=== PATIENT | female | born 1950 | race Caucasian/White ===

== ENCOUNTER 2023-04-25 08:20 | Day surgery (SDC) | payer MEDICARE, OTHER, SELFPAY ==
--- NOTE | 2023-04-25 | IMM_PTH ---
PATHOLOGY RESULTS PATIENT: CHRISTIAN ESTES LOC[place] [facility] [place][id number] AGE/SX: 72/F ROOM: RE04/25/[address]: Dr. Catherine Vaca MD : 1950 BED: DIS: 04/25/2023 SPEC #: [id number] RECD: 04/29/23 12:47 STATUS: AJZLYN KANE #: [id number] KIMMIE: 04/25/23 00:[address]: Catherine Vaca DEPT: IMMUNOHISTOCHEMISTRY RECD BY: Maria Luisa Erickson ENTERED: 04/29/23 12:49 SP TYPE: IMMUNO Tissues: Skin of arm Procedures: MART1 (add) S100 (initial) PHYSICIAN & INSTITUTION [place] [id number] SPECIMEN INFORMATION: Tissue Source: Neoplasm of uncertain behavior right elbow area Clinical Info: Neoplasm of lesion right upper arm Specimen Number: [id number] CPT code: 84235, 01128 METHODOLOGY: Deparaffinized sections of prefer/formalin-fixed tissue or PAP/DQ stained slides are incubated with monoclonal/polyclonal antibodies/oligonucleotide probes. Localization is made via biotin free immunoperoxidase method. Appropriate controls are performed and reacted as expected. Results on target cell population are indicated in the following table: RESULTS: ANTIBODY / CLONE RESULT S-100 (4C4.9) negative MART-1 (A-103) negative These tests were developed and their performance characteristics determined by [facility]. They may not have been cleared or approved by the [place]. Food and Drug Administration. The FDA has determined that such clearance or approval is not necessary. The above immunohistochemical/dualISH markers are ordered and reviewed by the Pathologist. INTERPRETATION: Lesion, right upper are, excision: Negative for melanocyte lesion MIAN:nikita 04/30/2023
--- OUTSIDE RECORDS SUMMARY | 2023-04-25 08:45 | XMS RPT_ITS | CCD ---
Author Name Unknown Address [address] [place] [address] Organization [facility] Care Team Providers Care Waste Management Recycling Technician Name Role Phone No Family, Physician Primary Care Unavailable Leilani PAYAN, Fereshte Primary Care Provider Leilani PAYAN, Jayleneshsejal Primary Care Provider Leilani PAYAN, Fereshsejal Primary Care Provider Leilani PAYAN, Jayleneshte Primary Care Provider [phone] Leilani PAYAN, Fereshte Primary Care Provider Leilani PAYAN, Fereshte Primary Care Provider FELIX CAMACHO Attending Unavailable KHAVARI, FERESHTE Primary Care Unavailable KHAVARI, FERESHTE Referring Unavailable KHAVARI, FERESHTE Primary Care Unavailable KHAVARI, FERESHTE Attending Unavailable KHAVARI, FERESHTE Referring Unavailable KHAVARI, FERESHTE Attending Unavailable KHAVARI, FERESHTE Primary Care Unavailable KHAVARI, FERESHTE Referring Unavailable KHAVARI, FERESHTE Attending Unavailable KHAVARI, FERESHTE Primary Care Unavailable KHAVARI, FERESHTE Referring Unavailable KHAVARI, FERESHTE Attending Unavailable KHAVARI, FERESHTE Primary Care Unavailable KHAVARI, FERESHTE Primary Care Unavailable KHAVARI, FERESHTE Attending Unavailable KHAVARI, FERESHTE Referring Unavailable KHAVARI, FERESHTE Primary Care Unavailable KHAVARI, FERESHTE Attending Unavailable KHAVARI, FERESHTE Referring Unavailable KHAVARI, FERESHTE Primary Care Unavailable KHAVARI, FERESHTE Attending Unavailable KHAVARI, FERESHTE Referring Unavailable KHAVARI, FERESHTE Primary Care Unavailable KHAVARI, FERESHTE Attending Unavailable KHAVARI, FERESHTE Referring Unavailable KHAVARI, FERESHTE Attending Unavailable SELF, SELF Referring Unavailable KHAVARI, FERESHTE Primary Care Unavailable SELF, SELF Referring Unavailable KHAVARI, FERESHTE Attending Unavailable KHAVARI, FERESHTE Primary Care Unavailable KHAVARI, FERESHTE Attending Unavailable KHAVARI, FERESHTE Primary Care Unavailable SELF, SELF Referring Unavailable KHAVARI, FERESHTE Attending Unavailable KHAVARI, FERESHTE Primary Care Unavailable SELF, SELF Referring Unavailable KHAVARI, FERESHTE Attending Unavailable KHAVARI, FERESHTE Primary Care Unavailable SELF, SELF Referring Unavailable ANDRE KNIGHT Attending Unavailabl e KHAVARI, FERESHTE Primary Care Unavailable ANDRE KNIGHT Attending Unavailabl e KHAVARI, FERESHTE Primary Care Unavailable EDWAR BUTTS Attending Unavailable KHAVARI, FERESHTE Primary Care Unavailable FAKIRAN CARTAGENA Attending Unavailable KHAVARI, FERESHTE Primary Care Unavailable Allergies Allergy Classification Reported Allergen(s) Allergy Type Date of Onset Reaction(s) Facility Penicillins (antibiotic) (3 sources) Penicillins Drug Allergy 6 [facility] Sulfonamides (antibiotic) (1 source) Sulfonamides (Antibiotic) Drug Allergy 7 GI Intolerance [facility] (11 sources) Penicillins; Translations: [PENICILLINS] Propensity to adverse reactions to drug 6 Nausea and Vomiting [facility] (7 sources) Sulfonamides (Antibiotic); Translations: [SULFA (SULFONAMIDE ANTIBIOTICS)] Propensity to adverse reactions to drug 7 GI Intolerance, Nausea and Vomiting [facility] (11 sources) Sulfonamides (Antibiotic) Propensity to adverse reactions to drug 7 Nausea and Vomiting [facility] (1 source) Penicillins Propensity to adverse reactions to drug 7 Nausea and Vomiting [facility] (3 sources) Penicillins Propensity to adverse reactions to drug 6 Other (See Comments) [facility] Medications Current Medications Medication Drug Class(es) Dates Sig (Normalized) Sig (Original) amoxicillin 875 mg / clavulanate 125 mg oral tablet (1 source) Penicillin-class Antibacterial Start: 11-27-2020 End: 12-04-2020 take 1 tablet by mouth twice daily amoxicillin-clavu lanate (Augmentin) 875-125 mg per tablet Take 1 (one) tablet by mouth 2 (two) times a day for 7 days . 14 tablet 0 11/27/2020 12/04/2020 Active azithromycin 250 mg oral tablet (1 source) Macrolide Antimicrobial Start: 05-27-2021 End: 06-01-2021 take 1 tablet by mouth once daily azithromycin (Zithromax Z-Joe) 250 MG tablet Indications: Respiratory infection Take 1 (one) tablet (250 mg total) by mouth daily for 5 days . 5 tablet 0 05/27/2021 06/01/2021 Active calcium carbonate 1250 mg / cholecalciferol 200 unt oral tablet (13 sources) Vitamin D calcium-vitamin D 500-200 MG-UNIT Tab take by mouth daily.. 0 Active Calcium Carbonate / Ergocalciferol (7 sources) Provitamin D2 Compound take 1 tablet by mouth twice daily calcium carbonate-vitamin D2 500 mg(1,250mg) -200 unit tablet Take 1 (one) tablet (500 mg total) by mouth 2 (two) times a day . 0 Active Completed/Discontinued Medications Medication Drug Class(es) Dates Sig (Normalized) Sig (Original) benzonatate 200 mg oral capsule (2 sources) Non-narcotic Antitussive Start: 05-17-2022 End: 07-09-2022 take 1 capsule by mouth three times daily as needed for cough benzonatate 200 MG capsule TAKE 1 CAPSULE BY MOUTH THREE TIMES A DAY NEEDED FOR COUGH 0 05/17/2022 07/09/2022 Discontinued fluconazole 150 mg oral tablet (2 sources) Azole Antifungal Start: 01-31-2023 End: 03-27-2023 Fluconazole (Diflucan) 150 MG tablet One pill now and repeat in 48 hours 2 tablet 0 01/31/2023 03/27/2023 Discontinued (Therapy completed) fluorouracil 50 mg/ml topical solution (3 sources) Nucleoside Metabolic Inhibitor Start: 04-10-2022 End: 07-09-2022 Fluorouracil 5 % Solution Apply to actinic keratosis on nose small amount daily. Avoid healthy skin exposure and eye contact. Apply up to 4 weeks or till area blisters 10 mL 0 04/10/2022 07/09/2022 Discontinued lidocaine 1%/ epinephrine 1:100,000 with sodium bicarbonate 8.4% (1 source) Start: 12-20-2021 End: 12-20-2021 lidocaine 1%/ epinephrine 1:100,000 with sodium bicarbonate 8.4% lisinopril 5 mg oral tablet (2 sources) Angiotensin Converting Enzyme Inhibitor Start: 01-13-2023 End: 01-31-2023 take 1 tablet by mouth once daily Lisinopril 5 MG tablet Take 1 tablet by mouth daily. 90 tablet 1 01/13/2023 01/31/2023 Discontinued Problems Active Problems Problem Classification Problem Date Documented Date Episodic/Chronic Allergic reactions (10 sources) Contact dermatitis due to poison umm; Translations: [Allergic contact dermatitis due to plants, except food] Onset: 01-03-2023 Episodic Deficiency and other anemia (1 source) Iron deficiency anemia; Translations: [Iron deficiency anemia, unspecified] 12-19-2022 Episodic Deficiency and other anemia (2 sources) Iron deficiency anemia, unspecified; Translations: [Iron deficiency anemia, unspecified] Onset: 12-19-2022 Episodic Diabetes mellitus without complication (18 sources) Impaired glucose tolerance; Translations: [Impaired glucose tolerance (oral)] Onset: 01-31-2023 11-21-2016 Episodic Disorders of lipid metabolism (18 sources) Hypercholesterolemia; Translations: [Pure hypercholesterolemia, unspecified] Onset: 11-21-2016 11-21-2016 Chronic Essential hypertension (20 sources) Hypertensive disorder; Translations: [Essential (primary) hypertension] Onset: 01-31-2023 11-21-2016 Chronic Genitourinary symptoms and ill-defined conditions (3 sources) Dysuria; Translations: [Dysuria] Onset: 01-31-2023 01-31-2023 Episodic Open wounds of extremities (1 source) Post-traumatic wound infection; Translations: [Open bite, left lower leg, initial encounter] Episodic Other and unspecified benign neoplasm (1 source) Benign neoplasm of skin; Translations: [Other benign neoplasm of skin, unspecified] Episodic Other female genital disorders (1 source) Vaginal irritation; Translations: [Other specified noninflammatory disorders of vagina] 01-31-2023 Episodic Other female genital disorders (2 sources) Other specified noninflammatory disorders of vagina; Translations: [Other specified noninflammatory disorders of vagina] Onset: 01-31-2023 Episodic Other lower respiratory disease (1 source) Respiratory tract infection; Translations: [Other specified respiratory disorders] Episodic Other lower respiratory disease (1 source) Rib pain; Translations: [Pleurodynia] Episodic Other nutritional; endocrine; and metabolic disorders (13 sources) Severe obesity; Translations: [Morbid (severe) obesity due to excess calories] Onset: 03-02-2018 03-02-2018 Chronic Other screening for suspected conditions (not mental disorders or infectious disease) (6 sources) Patient encounter status; Translations: [Encounter for screening mammogram for malignant neoplasm of breast] Onset: 07-31-2022 Episodic Other upper respiratory disease (2 sources) Congestion of nasal sinus; Translations: [Nasal congestion] Episodic Other upper respiratory disease (2 sources) Nasal congestion; Translations: [Nasal congestion] Onset: 01-31-2023 Episodic Skin and subcutaneous tissue infections (1 source) Cellulitis of left lower limb; Translations: [Cellulitis of left lower limb] Episodic Spondylosis; intervertebral disc disorders; other back problems (2 sources) Backache; Translations: [Dorsalgia, unspecified] Episodic Past or Other Problems Problem Classification Problem Date Documented Date Episodic/Chronic E Codes: Natural/environment (2 sources) Bitten by cat, initial encounter; Translations: [Bitten by cat, initial encounter] Onset: 11-30-2022 Episodic Fracture of lower limb (20 sources) Closed fracture of fifth metatarsal bone; Translations: [Nondisplaced fracture of fifth metatarsal bone, left foot, initial encounter for closed fracture] Onset: 10-18-2015 Resolved: 03-13-2018 10-18-2015 Episodic Malaise and fatigue (13 sources) Fatigue; Translations: [Other fatigue] Resolved: 12-19-2020 12-19-2020 Episodic Mycoses (13 sources) Subcutaneous pheohyphomycotic abscess and cyst; Translations: [Subcutaneous pheomycotic abscess and cyst] Onset: 02-10-2020 Resolved: 12-19-2020 12-19-2020 Episodic Other and unspecified benign neoplasm (10 sources) Dysplastic nevus of skin of right lower limb; Translations: [Melanocytic nevi of right upper limb, including shoulder] Onset: 12-20-2021 Episodic Other and unspecified benign neoplasm (2 sources) Dysplastic nevus of skin of right upper limb; Translations: [Other benign neoplasm of skin of right upper limb, including shoulder] Onset: 12-20-2021 Episodic Other and unspecified benign neoplasm (2 sources) Other benign neoplasm of skin of right upper limb, including shoulder; Translations: [Other benign neoplasm of skin of right upper limb, including shoulder] Onset: 07-09-2022 Episodic Other connective tissue disease (2 sources) Other shoulder lesions, left shoulder; Translations: [Other shoulder lesions, left shoulder] Onset: 10-08-2022 Episodic Other skin disorders (2 sources) Actinic keratosis; Translations: [Actinic keratosis] Onset: 04-10-2022 Episodic Other skin disorders (1 source) Actinic keratosis; Translations: [Actinic keratosis] Onset: 04-10-2022 Episodic Other upper respiratory infections (5 sources) Viral upper respiratory tract infection; Translations: [Acute upper respiratory infection, unspecified] Onset: 05-17-2022 Episodic Unclassified (1 source) Onset: 10-09-2021 10-09-2021 Results Test Name Value Interpretation Reference Range Facil ity Vital Signs Date Time Vital Sign Value Performing Clinician Faci lity 03-27-2023 11:55-0400 Body height 165.1 cm Elizabet Duke MD Work Phone: [facility] 03-27-2023 11:55-0400 Body mass index (BMI) [Ratio] 37.51 kg/m2 Elizabet Duke MD Work Phone: [facility] 03-27-2023 11:55-0400 Body temperature 98.4 [degF] Elizabet Duke MD Work Phone: [facility] 03-27-2023 11:55-0400 Body weight 102.24 kg Elizabet Duke MD Work Phone: [facility] 03-27-2023 11:55-0400 Diastolic blood pressure 84 mm[Hg] Elizabet Duke MD Work Phone: [facility] 03-27-2023 11:55-0400 Heart rate 76 /min Elizabet Duke MD Work Phone: [facility] 03-27-2023 11:55-0400 Respiratory rate 18 /min Elizabet Duke MD Work Phone: [facility] 03-27-2023 11:55-0400 SaO2% (BldA) [Mass fraction] 97 % Elizabet Duke MD Work Phone: [facility] 03-27-2023 11:55-0400 Systolic blood pressure 124 mm[Hg] Elizabet Duke MD Work Phone: [facility] 01-31-2023 07:57-0400 Body height 165.1 cm Elizabet Duke MD Work Phone: [facility] 01-31-2023 07:57-0400 Body mass index (BMI) [Ratio] 37.48 kg/m2 Elizabet Duke MD Work Phone: [facility] 01-31-2023 07:57-0400 Body temperature 97.9 [degF] Elizabet Duke MD Work Phone: [facility] 01-31-2023 07:57-0400 Body weight 102.15 kg Elizabet Duke MD Work Phone: [facility] 01-31-2023 07:57-0400 Diastolic blood pressure 78 mm[Hg] Elizabet Duke MD Work Phone: [facility] 01-31-2023 07:57-0400 Heart rate 83 /min Elizabet Duke MD Work Phone: [facility] 01-31-2023 07:57-0400 Respiratory rate 18 /min Elizabet Duke MD Work Phone: [facility] 01-31-2023 07:57-0400 SaO2% (BldA) [Mass fraction] 94 % Elizabet Duke MD Work Phone: [facility] Encounters Encounter Date Encounter Type Care Provider Facility Start: 03-27-2023 End: 03-27-2023 Office outpatient visit 25 minutes Elizabet Duke MD Work Phone: [facility] Procedures Date Procedure Procedure Detail Performing Clinician Start: 01-31-2023 Culture bacterial quanttative colony count urine Elizabet Duke MD Work Phone: Start: 01-31-2023 Hemoglobin glycosyla eduardo a1c Elizabet Duke MD Work Phone: Start: 01-31-2023 Urnls dip stick/tabl et rgnt auto w/o microscopy Elizabet Duke MD Work Phone: Start: 12-18-2022 Lipid 1995 panel - S praveena or Plasma Elizabet Duke MD Work Phone: Start: 07-31-2022 End: 07-31-2022 Screening mammography bi 2-view breast inc cad Elizabet Duke MD Work Phone: Start: 05-18-2022 Iadna nos amplified probe tq each organism Felix A Foskey DO Work Phone: Start: 05-18-2022 Quantitative PCR analysis Felix A Foskey DO Work Phone: Start: 04-20-2022 Lipid 1996 panel - S praveena or Plasma Felix Foskey DO Work Phone: Start: 04-18-2021 Lipid 1996 panel - S praveena or Plasma Elizabet Duke MD Work Phone: Start: 09-04-2020 Lipid 1996 panel - S praveena or Plasma Marie Gerardo DITTO MACHINE OPERATOR-APRON WORKER Work Phone: Start: 03-21-2020 Mammography Jay Marcial meléndez PA-C Work Phone: Plan of Treatment Date Care Activity Detail Author Start: 11-27-2030 Tetanus vaccination [facility] Start: 03-02-2030 Screening for osteoporosis DEXA SCAN DISCUSSION [facility] Immunizations Immunization Date Immunization Notes Care Provider Fa cili 04-10-2021 Influenza, High-dose Seasonal, Quadrivalent, Preservative Free Elizabet Duke MD Work Phone: [facility] 04-10-2021 influenza virus vacc ine, unspecified formulation Catherine Vaca MD Work Phone: [facility] 11-27-2020 diphtheria and tetan us toxoids, adsorbed for pediatric use Jaycandida Styles PA-C Work Phone: [facility] Work Phone: 11-27-2020 tetanus and diphther ia toxoids, adsorbed, preservative free, for adult use (2 Lf of tetanus toxoid and 2 Lf of diphtheria toxoid) Jay Styles PA-C Work Phone: [facility] 08-09-2020 SARS-COV-2 (COVID-19 ), Mrna, Lnp-s, Pf, 100 Mcg/ 0.5 Ml Dose MODERNA Marie Trubachik DITTO MACHINE OPERATOR-APRON WORKER Work Phone: [facility] 07-11-2020 SARS-COV-2 (COVID-19 ), Mrna, Lnp-s, Pf, 100 Mcg/ 0.5 Ml Dose MODERNA Marie Trubachik DITTO MACHINE OPERATOR-APRON WORKER Work Phone: [facility] 06-03-2020 zoster vaccine recombinant Marie Trubachik DITTO MACHINE OPERATOR-APRON WORKER Work Phone: [facility] 02-05-2019 zoster vaccine recombinant Marie Trubachik DITTO MACHINE OPERATOR-APRON WORKER Work Phone: [facility] 09-09-2018 zoster vaccine recombinant Marie Trubachik DITTO MACHINE OPERATOR-APRON WORKER Work Phone: [facility] 03-02-2018 pneumococcal polysaccharide vaccine, 23 valent Marie Trubachik DITTO MACHINE OPERATOR-APRON WORKER Work Phone: [facility] 02-26-2017 pneumococcal conjuga te vaccine, 13 valent Marie Trubachik DITTO MACHINE OPERATOR-APRON WORKER Work Phone: [facility] 04-01-2015 influenza, injectabl e, quadrivalent, preservative free Marie Trubachik DITTO MACHINE OPERATOR-APRON WORKER Work Phone: [facility] 04-01-2015 influenza virus vacc ine, unspecified formulation Marie Trubachik DITTO MACHINE OPERATOR-APRON WORKER Work Phone: [facility] 11-25-2013 tetanus and diphther ia toxoids, adsorbed, preservative free, for adult use (5 Lf of tetanus toxoid and 2 Lf of diphtheria toxoid) Marie Gerardo DITTO MACHINE OPERATOR-APRON WORKER Work Phone: [facility] 12-26-1997 TD(adult) unspecifie d formulation Marie Gerardo DITTO MACHINE OPERATOR-APRON WORKER Work Phone: [facility] Payers Date Payer Category Payer Medicare MEDICARE MEDICAR E A AND B [id number] 2020-Present [address] [place] [address] [id number] 2020 Unknown [id number] 2020 Unknown [id number] [id number] [id number] 2020 Unknown [id number] 2020 Medicare [id number] [id number] 2020 Medicare [id number] 2012 Unknown [id number] [id number] 1950 Unknown [id number] 2.16.840.1.140784.3.579.2.983 1950 Unknown [id number] 2.16.840.1.467513.3.579.2.983 1950 Unknown [id number] 2.16.840.1.218609.3.579.2.983 1950 Unknown [id number] 2.16.840.1.880737.3.579.2.983 1950 Unknown [id number] 2.16.840.1.594509.3.579.2.983 1950 Unknown [id number] 2.16.840.1.723679.3.579.2.983 1950 Unknown [id number] 2.16.840.1.159130.3.579.2.983 1950 Unknown [id number] 2.16.840.1.181378.3.579.2.983 1950 Unknown [id number] 2.16.840.1.454613.3.579.2.983 1950 Unknown [id number] 2.16.840.1.399513.3.579.2.983 1950 Unknown [id number] 2.16.840.1.875436.3.579.2.983 1950 Unknown [id number] 2.16.840.1.948443.3.579.2.983 1950 Unknown [id number] 2.16.840.1.304688.3.579.2.983 1950 Unknown [id number] 2.16.840.1.583281.3.579.2.983 1950 Unknown [id number] 2.16.840.1.876661.3.579.2.903 1950 Unknown [id number] 2.16.840.1.995406.3.579.2.903 1950 Unknown [id number] 2.16.840.1.776048.3.579.2.903 1950 Unknown [id number] [id number] Social History Date Type Detail Facility Start: 11-27-2020 End: 07-09-2022 Tobacco smoking status NHIS Never smoker [facility] Start: 11-27-2020 End: 07-09-2022 Tobacco use and exposure Never used [facility] Start: 1950 [facility] Start: 12-10-2021 End: 05-18-2022 Exposure to SARS-CoV-2 (event) Not sure [facility] Start: 12-20-2021 End: 03-27-2023 Alcohol intake Lifetime non-drinker (finding) [facility] Start: 12-19-2022 End: 03-27-2023 History of Social function [facility] Start: 12-19-2022 End: 03-27-2023 Tobacco use panel [facility] Gender identity Identifies as fe male gender (finding) [facility] Clinical Notes 11-27-2020 to 03-27-2023 Kaity Cortes LPN - 03/27/2023 11:45 AM David Duke MD - 03/27/2023 11:45 AM EDTPatient Julissa James LPN - 01/31/2023 8:00 AM David Duke MD - 01/31/2023 8:00 AM EDT Note Date & Type Note Facility 03-27-2023 History of Present illness Narrative Nurse Note: Review of Systems Constitutional: Negative for chills, fatigue and fever. HENT: Positive for congestion, postnasal drip, rhinorrhea and sinus pressure. Negative for ear pain, nosebleeds, sinus pain, sneezing and sore throat. Eyes: Positive for redness and itching. Negative for pain and discharge. Respiratory: Negative for cough, chest tightness, shortness of breath and wheezing. Cardiovascular: Negative for chest pain, palpitations and leg swelling. Gastrointestinal: Negative for abdominal pain, blood in stool, constipation, diarrhea, nausea and vomiting. Genitourinary: Negative for dysuria, frequency, hematuria and urgency. Musculoskeletal: Negative for back pain, joint swelling, myalgias and neck pain. Skin: Positive for rash. Allergic/Immunologic: Negative for environmental allergies (and seasonal allergies). Neurological: Negative for dizziness and headaches. Psychiatric/Behavioral: Negative for agitation and sleep disturbance. The patient is not nervous/anxious. Nursing Assessment: Physical Exam Poison Umm: Sera was exposed to poison umm. She went to Urgent Care Friday, when she received injection and prednisone. She says at this time, it is spreading and getting worse. Subjective History of Present Illness 72 year old white female with past medical history of hypercholesteremia , hypertension, glucose intolerance,atypical nevus right upper arm 12/20/21, and obesity presenting with rash 5 days ago . Was exposed to poison umm 6 days ago. Rash started around right elbow, right forearm, right eye brow, and mid chest. Rash was very pruitis. Went to urgent care and was given prednison 20 mg a day for 7 days on 03/23/23 and dexamethasone 4 mg IM. Was starting to improve till two days ago . Patient developed right inner arm rash along with right inguinal rash in last two nights. Was using Diphenhydramine on 03/23/23 which was helped but then patient worsening of rash two days ago then patient started with hydrocortison 1% rash yesterday. Awakening with itching and difficulty Patient denies taking new vitamins, new foods, peanut butter, sushi, fish, clams, lobsters, new detergents, herbal supplements, or new soaps. Patient denies any fever, chills, chest pain, shortness of breath, nausea, vomiting, diarrhea, abdominal , dysuria or urinary frequency. Has been taking susan 180 mg a day Has diaphoresis at times Objective Review of Systems Constitutional: Negative for activity change, appetite change, chills, diaphoresis, fatigue, fever and unexpected weight change. HENT: Positive for congestion, postnasal drip, rhinorrhea and sinus pressure. Negative for ear discharge, ear pain, facial swelling, mouth sores, sinus pain, sore throat, tinnitus, trouble swallowing and voice change. Eyes: Positive for redness and itching. Respiratory: Negative for apnea, cough, choking, chest tightness, shortness of breath, wheezing and stridor. Cardiovascular: Negative for chest pain, palpitations and leg swelling. Gastrointestinal: Negative for abdominal distention, abdominal pain, anal bleeding, blood in stool, constipation, diarrhea, nausea, rectal pain and vomiting. Endocrine: Negative for cold intolerance, heat intolerance, polydipsia, polyphagia and polyuria. Genitourinary: Negative for difficulty urinating, dysuria, enuresis, frequency and urgency. Musculoskeletal: Negative for arthralgias, back pain and myalgias. Skin: Positive for rash. Allergic/Immunologic: Negative for food allergies. Neurological: Negative for dizziness, tremors, seizures, syncope, facial asymmetry, speech difficulty, weakness, light-headedness, numbness and headaches. Hematological: Negative for adenopathy. Psychiatric/Behavioral: Negative for confusion and dysphoric mood. Vitals: Blood pressure 124/84, pulse 76, temperature 98.4 F (36.9 C), resp. rate 18, height 1.651 m (5' 5 ), weight 102.2 kg (225 lb 6.4 oz), SpO2 97 %, not currently . Physical Exam Constitutional: General: She is not in acute distress. Appearance: Normal appearance. She is not ill-appearing, toxic-appearing or diaphoretic. HENT: Head: Normocephalic and atraumatic. Right Ear: Tympanic membrane, ear canal and external ear normal. There is no impacted cerumen. Left Ear: Tympanic membrane, ear canal and external ear normal. There is no impacted cerumen. Nose: Congestion present. No rhinorrhea. Mouth/Throat: Mouth: Mucous membranes are moist. Pharynx: Oropharynx is clear. No oropharyngeal exudate or posterior oropharyngeal erythema. Eyes: General: No scleral icterus. Right eye: No discharge. Left eye: No discharge. Extraocular Movements: Extraocular movements intact. Conjunctiva/sclera: Conjunctivae normal. Pupils: Pupils are equal, round, and reactive to light. Neck: Thyroid: No thyromegaly. Vascular: No carotid bruit or JVD. Trachea: No tracheal deviation. Cardiovascular: Rate and Rhythm: Normal rate and regular rhythm. Pulses: Normal pulses. Heart sounds: Normal heart sounds. No murmur heard. No friction rub. No gallop. Comments: No jvd, bruit or pedal edema Pulmonary: Effort: Pulmonary effort is normal. No respiratory distress. Breath sounds: Normal breath sounds. No stridor. No wheezing, rhonchi or rales. Chest: Chest wall: No tenderness. Abdominal: General: Abdomen is flat. Bowel sounds are normal. There is no distension. Palpations: Abdomen is soft. There is no mass. Tenderness: There is no abdominal tenderness. There is no right CVA tenderness, left CVA tenderness, guarding or rebound. Hernia: No hernia is present. Musculoskeletal: Cervical back: Normal range of motion and neck supple. No rigidity or tenderness. No muscular tenderness. Right lower leg: No edema. Left lower leg: No edema. Lymphadenopathy: Head: Right side of head: No submental, submandibular, tonsillar, preauricular, posterior auricular or occipital adenopathy. Left side of head: No submental, submandibular, tonsillar, preauricular, posterior auricular or occipital adenopathy. Cervical: No cervical adenopathy. Skin: Comments: Noted blistery, horizontal rash puritis on right lopez , forearm, and lateral elbow appearing to be contact dermatitis. Noted pink blanching patch on upper right inner proximal arm and right inguinal region appearing to be allergic dermatitis. Neurological: Mental Status: She is alert and oriented to person, place, and time. Psychiatric: Mood and Affect: Mood normal. Behavior: Behavior normal. Neurological Exam Mental Status Alert. Oriented to person, place, and time. Cranial Nerves CN III, IV, : Extraocular movements intact bilaterally. Pupils equal round and reactive to light bilaterally. Assessment and Plan 1. Contact dermatitis. Stop prednison [address] on predniosn taper, famotidine 40 mg a day and kenolog shot 40 mg will be given today 2. Allergic dermatitis. Avoid benadryl cream at this time since worsened symptoms documented in this encounter [facility] 03-27-2023 Instructions Elizabet Duke MD - 03/27/2023 11:45 AM EDT Contact dermatitis. Stop prednison [address] on predniosn taper, famotidine 40 mg a day and kenolog shot 40 mg will be given today 2. Allergic dermatitis. Avoid benadryl cream at this time since worsened symptoms documented in this encounter [facility] 01-31-2023 History of Present illness Narrative Nurse Note: Review of Systems Constitutional: Negative for chills, fatigue and fever. HENT: Positive for congestion, rhinorrhea, sinus pressure, sneezing and sore throat. Negative for ear pain, nosebleeds, postnasal drip and sinus pain. Eyes: Positive for discharge and itching. Negative for pain and redness. Respiratory: Positive for cough. Negative for chest tightness, shortness of breath and wheezing. Cough with white phlegm Cardiovascular: Negative for chest pain, palpitations and leg swelling. Gastrointestinal: Negative for abdominal pain, constipation, diarrhea, nausea and vomiting. Genitourinary: Positive for dysuria, frequency and urgency. Negative for hematuria. Musculoskeletal: Negative for back pain and neck pain. Neurological: Negative for dizziness, light-headedness and headaches. Psychiatric/Behavioral: Positive for sleep disturbance. Physical Exam History of Present Illness 72 year old white female with past medical history of hypercholesteremia , hypertension, glucose intolerance,atypical nevus right upper arm 12/20/21, and obesity presenting for recheck of hypertension , vaginal burning, and sinus congestion Hypertension She presents for follow-up of hypertension. HTN has been present for approximately 12 years and has been treated since approximately 12 years with diet. She indicates that she is feeling well and denies any symptoms referable to her elevated blood pressure. Specifically denies chest pain, shortness of breath at rest or exertion, nausea, vomiting, lightheadness, Tremors, constipation, diarrhea, orthopnea, worsening leg swelling, dysphagia, appetitie loss, dyspnea on exertion, loss of vision, or focal weakness. Current medication regimen is as listed in this record. She is currently experiencing the following side effects from her medication: none Has occasional right ankle swelling improved per patient Hydrochlorothiazide 12.5 mg a day and lisinopril 5 mg a day taken in am Blood pressure readings taken since the last visit are: 122/92. Stated noted diastolic blood pressure has been elevated at 90's.present all day. Use of agenTs associated with hypertension: none. History of renal disease: no. Vaginal burning. Present for five days with vaginal burning, tingling, dysuria, and urinary urgency with frequency. Patient denies any fever, chills, chest pain, shortness of breath, new sexual partner, abdominal pain, leg swelling, dizziness, syncope, diarrhea, constipation, changed detergents or soaps, or recent travel. Has been pulling weeds recently Status post hysterectomy total in 2001 due to cyst. Sinus congestion. Sinus pressure, clear rhinorrhea, sneezing, sore throat, post nasal drip, cough with post nasal drip, and congestion for last 7 days after starting to pull weeds. Has been using flonase and susan prn. Has not been using daily. Denies any wheezing, fever, chills, chest pain, shortness of breath, dizziness, headache or syncope 12/18/22; Glucose of 111 was 107. Normal kidney and liver function. Normal white blood cell of 7.8, hemoglobin of 13.9 was 10.8, hematocrit 42.4 was 33.9. normal platelet count of 280. Normal ferritin at 28 was 5.Total cholesterol of 160 was 170 eight months ago. Triglyceride 92 was 117. HDL or good cholesterol of 56 was 54. LDL or bad cholesterol of 86 was 93. Iron 51 was 31. Review of Systems Constitutional: Positive for unexpected weight change (1 pound loss). Negative for activity change, appetite change, chills, diaphoresis, fatigue and fever. HENT: Positive for congestion, rhinorrhea, sinus pressure, sneezing and sore throat. Negative for ear discharge, ear pain, facial swelling, mouth sores, postnasal drip, sinus pain, tinnitus, trouble swallowing and voice change. Eyes: Positive for discharge and itching. Negative for redness. Respiratory: Positive for cough (cough with white sputum). Negative for apnea, choking, chest tightness, shortness of breath, wheezing and stridor. Cardiovascular: Negative for chest pain, palpitations and leg swelling. Gastrointestinal: Negative for abdominal distention, abdominal pain, anal bleeding, blood in stool, constipation, diarrhea, nausea, rectal pain and vomiting. Endocrine: Negative for cold intolerance, heat intolerance, polydipsia, polyphagia and polyuria. Genitourinary: Positive for dysuria, frequency and urgency. Negative for difficulty urinating and enuresis. Musculoskeletal: Negative for arthralgias, back pain and myalgias. Skin: Negative for rash. Allergic/Immunologic: Negative for food allergies. Neurological: Negative for dizziness, tremors, seizures, syncope, facial asymmetry, speech difficulty, weakness, light-headedness, numbness and headaches. Hematological: Negative for adenopathy. Psychiatric/Behavioral: Positive for sleep disturbance. Negative for confusion and dysphoric mood. Vitals: Blood pressure 122/78, pulse 83, temperature 97.9 F (36.6 C), temperature source Oral, resp. rate 18, height 1.651 m (5' 5 ), weight 102.2 kg (225 lb 3.2 oz), SpO2 94 %, not currently . Physical Exam Exam conducted with a automatic winder operator present. Constitutional: General: She is not in acute distress. Appearance: Normal appearance. She is not ill-appearing, toxic-appearing or diaphoretic. HENT: Head: Normocephalic and atraumatic. Right Ear: Tympanic membrane, ear canal and external ear normal. There is no impacted cerumen. Left Ear: Tympanic membrane, ear canal and external ear normal. There is no impacted cerumen. Nose: Congestion (swollen red nasal mucosa with no discharge) present. No rhinorrhea. Mouth/Throat: Mouth: Mucous membranes are moist. Pharynx: Oropharynx is clear. No oropharyngeal exudate or posterior oropharyngeal erythema. Eyes: General: No scleral icterus. Right eye: No discharge. Left eye: No discharge. Extraocular Movements: Extraocular movements intact. Conjunctiva/sclera: Conjunctivae normal. Pupils: Pupils are equal, round, and reactive to light. Neck: Thyroid: No thyromegaly. Vascular: No carotid bruit or JVD. Trachea: No tracheal deviation. Cardiovascular: Rate and Rhythm: Normal rate and regular rhythm. Pulses: Normal pulses. Heart sounds: Normal heart sounds. No murmur heard. No friction rub. No gallop. Comments: No jvd, bruit or pedal edema Pulmonary: Effort: Pulmonary effort is normal. No respiratory distress. Breath sounds: Normal breath sounds. No stridor. No wheezing, rhonchi or rales. Chest: Chest wall: No tenderness. Abdominal: General: Abdomen is flat. Bowel sounds are normal. There is no distension. Palpations: Abdomen is soft. There is no mass. Tenderness: There is no abdominal tenderness. There is no right CVA tenderness, left CVA tenderness, guarding or rebound. Hernia: No hernia is present. There is no hernia in the left inguinal area or right inguinal area. Genitourinary: Labia: Right: No rash, tenderness, lesion or injury. Left: No rash, tenderness, lesion or injury. Urethra: No prolapse, urethral pain, urethral swelling or urethral lesion. Comments: Labial adhesion of majora to minora and minimal perinum irritation and redness noted. Status post menapause. Atrophic vaginal mucosa. Musculoskeletal: Cervical back: Normal range of motion and neck supple. No rigidity or tenderness. No muscular tenderness. Right lower leg: No edema. Left lower leg: No edema. Lymphadenopathy: Head: Right side of head: No submental, submandibular, tonsillar, preauricular, posterior auricular or occipital adenopathy. Left side of head: No submental, submandibular, tonsillar, preauricular, posterior auricular or occipital adenopathy. Cervical: No cervical adenopathy. Lower Body: No right inguinal adenopathy. No left inguinal adenopathy. Skin: Comments: No abnormal moles or lesions seen today on arms, chest or face. Multiple benign appearing moles and freckles noted Neurological: General: No focal deficit present. Mental Status: She is alert and oriented to person, place, and time. Psychiatric: Mood and Affect: Mood normal. Behavior: Behavior normal. Neurological Exam Mental Status Alert. Oriented to person, place, and time. Cranial Nerves CN III, IV, : Extraocular movements intact bilaterally. Pupils equal round and reactive to light bilaterally. Assessment and Plan 1. Hypertension controlled in office however diastolic has been elevated at home. Patient has cough with lisinopril. Stop lisinopril and start on losartan 25 mg a day. Continue with hydrochlorothiazide. Call with blood pressures in next couple of weeks. Goal is to keep below 140/90 and above 100/50 Continue on low salt diet. No more than a teaspoon or 2500 mg of salt a day. Exercise 150 minutes a week with walking , bicycling or swimming. If have chest pain or shortness of breath, go to er. 2. Dysuria; urinalysis negative but will check urine culture and vaginal culture 3. Vaginal irritation. Will place on diflucan one pill now and repeat in 48 hours. Recommend over the counter steriod cream like hydrocortison to be applied daily in perinum. Once have urine and vaginal culture, will decide if need to do premarin cream 4. Sinus congestion: most likely viral infection. Advise to take susan and flonase daily. Make sure to call if symptoms worsen. Can take corcidian if needed. Wash sheets once a week in hot water. Vacuum carpets once a week. Drink 48 to 54 ounce of water. 5. Borderline diabetes. Hemoglobin A1c 6.0. advise to decrease fried and fatty foods. Decrease bread, pasta, potato, sweets, rice ,ceral, pop, juice and too much corn. Recheck in may documented in this encounter [facility] 01-31-2023 Instructions Elizabet Duke MD - 01/31/2023 8:00 AM EDT Hypertension controlled in office however diastolic has been elevated at home. Patient has cough with lisinopril. Stop lisinopril and start on losartan 25 mg a day. Continue with hydrochlorothiazide. Call with blood pressures in next couple of weeks. Goal is to keep below 140/90 and above 100/50 Continue on low salt diet. No more than a teaspoon or 2500 mg of salt a day. Exercise 150 minutes a week with walking , bicycling or swimming. If have chest pain or shortness of breath, go to er. 2. Dysuria; urinalysis negative but will check urine culture and vaginal culture 3. Vaginal irritation. Will place on diflucan one pill now and repeat in 48 hours. Recommend over the counter steriod cream like hydrocortison to be applied daily in perinum. Once have urine and vaginal culture, will decide if need to do premarin cream 4. Sinus congestion: most likely viral infection. Advise to take susan and flonase daily. Make sure to call if symptoms worsen. Can take corcidian if needed. Wash sheets once a week in hot water. Vacuum carpets once a week. Drink 48 to 54 ounce of water. 5. Borderline diabetes. Hemoglobin A1c 6.0. advise to decrease fried and fatty foods. Decrease bread, pasta, potato, sweets, rice ,ceral, pop, juice and too much corn. Recheck in may documented in this encounter [facility] 01-03-2023 History of Present illness Narrative Images from the original note were not included. Patient Name: [facility] Location: [facility] [address] [place] [address] Date Of : Date Of Visit: 1950 01/03/2023 MRN# Provider: [id number] Andre Knight CNP Chief Complaint Patient presents with Poison Umm X 2 weeks has had 2 spots - one on each cheek at jaw line-- now rash has started spreading - waist line and afraid may have it in RT eye Assessment & Plan 1. Contact dermatitis due to plants, except food, unspecified contact dermatitis type No follow-ups on file. Medical Decision Making We did discuss the risks of steroids with her chronic HTN - I did use a low dose and only for 5 days - suggest H1/H2 blockers - the rash is very small in nature at this time. Additional Clinical Comments Subjective 72 y.o. female presents with Poison Umm (X 2 weeks has had 2 spots - one on each cheek at jaw line-- now rash has started spreading - waist line and afraid may have it in RT eye) Patient is here for a itchy rash to the right eye lid and left cheek - states that she works outside a lot. Tried OTC creams Poison Umm Review Of Systems Review of Systems Skin: Positive for rash. Medical History No past medical history on file. Past Surgical History: Procedure Laterality Date ANKLE FRACTURE SURGERY Right x3 ANKLE FRACTURE SURGERY Left HYSTERECTOMY WRIST SURGERY Left Patient Active Problem List Diagnosis Closed nondisplaced fracture of fifth metatarsal bone of left foot Social History Social History Tobacco Use Smoking status: Never Smokeless tobacco: Never Substance Use Topics Alcohol use: Never Drug use: Never Family History No family history on file. Objective Physical Exam BP 106/70 Pulse 86 Temp 98.2 F (36.8 C) Resp 16 Ht 5' 5 Wt 104.8 kg (231 lb) SpO2 98% BMI 38.44 kg/m Vision/Hearing Exam:No results found. Physical Exam Vitals and nursing note reviewed. Constitutional: Appearance: Normal appearance. Skin: Comments: 3 small erytetmosu macular areas to the left side of jaw line. Neurological: Mental Status: She is alert. Procedure Notes Procedures Results No results found for this or any previous visit (from the past 168 hour(s)). No orders to display Orders Placed This Visit No orders of the defined types were placed in this encounter. Medication List At End Of Visit Current Outpatient Medications Medication Sig Dispense Refill calcium carbonate-vitamin D2 500 mg(1,250mg) -200 unit tablet Take 1 (one) tablet (500 mg total) by mouth 2 (two) times a day . co-enzyme Q-10 30 mg capsule Take 1 (one) capsule (30 mg total) by mouth 3 (three) times a day . coenzyme Q10 400 mg cap Take by mouth daily . hydroCHLOROthiazide (HYDRODIURIL) 12.5 MG tablet Take 1 (one) tablet (12.5 mg total) by mouth daily . potassium chloride 10 MEQ CR tablet Take 1 (one) tablet (10 mEq total) by mouth daily . predniSONE (DELTASONE) 20 MG tablet Take one tablet PO every day for 5 days . 5 tablet 0 rosuvastatin (CRESTOR) 20 MG tablet TAKE 1 TABLET BY MOUTH EVERY DAY vitamin E 1,000 unit cap Take 1 (one) capsule (1,000 Units total) by mouth daily . No current facility-administered medications for this visit. There are no Patient Instructions on file for this visit. documented in this encounter [facility] 12-19-2022 History of Present illness Narrative Nurse Note: Review of Systems Constitutional: Negative for chills, fatigue and fever. HENT: Positive for postnasal drip, rhinorrhea and sneezing. Negative for congestion, ear pain, nosebleeds, sinus pressure, sinus pain and sore throat. Eyes: Negative for pain, discharge, redness and itching. Respiratory: Negative for cough, chest tightness, shortness of breath and wheezing. Cardiovascular: Negative for chest pain, palpitations and leg swelling. Gastrointestinal: Negative for abdominal pain, blood in stool, constipation, diarrhea, nausea and vomiting. Genitourinary: Negative for dysuria, frequency, hematuria and urgency. Musculoskeletal: Negative for back pain, joint swelling, myalgias and neck pain. Skin: Negative for rash. Allergic/Immunologic: Positive for environmental allergies (and seasonal allergies). Neurological: Negative for dizziness and headaches. Psychiatric/Behavioral: Negative for agitation and sleep disturbance. The patient is not nervous/anxious. Physical Exam History of Present Illness 71 year old white female with past medical history of hypercholesteremia , hypertension, glucose intolerance, and obesity presenting for recheck of hypertension and hypercolesteremia Hypertension She presents for follow-up of hypertension. HTN has been present for approximately 12 years and has been treated since approximately 12 years with diet. She indicates that she is feeling well and denies any symptoms referable to her elevated blood pressure. Specifically denies chest pain, shortness of breath at rest or exertion, nausea, vomiting, lightheadness, Tremors, constipation, diarrhea, orthopnea, worsening leg swelling, dysphagia, appetitie loss, dyspnea on exertion, loss of vision, or focal weakness. Current medication regimen is as listed in this record. She is currently experiencing the following side effects from her medication: none Has occasional right ankle swelling improved per patient Hydrochlorothiazide 12.5 mg a day Blood pressure readings taken since the last visit are: not checked recently Use of agenTs associated with hypertension: none. History of renal disease: noBravo Vo presents for cholesterol checkup. Patient has had cholesterol for several years and treated with crestor 20 mg a day. Patient does not have these side effects : occasional muscle ache noted Anemia; Patient with mild anemia since 04/13. Has been giving blood every 10 weeks. Patient gave blood 5 weeks ago.10/01/2016 colonoscopy showed diverticulosis. Urinalysis negative today. 07/15/22; fecal occult negative Patient denies any fever, chills, nausea, vomiting, melena, hematuria, bone pain, numbness or tingling in hands or feet, weight loss, dysuria, urinary frequency, dizziness, syncope, headache, or urinary urgency yesterday: Glucose of 111 was 107. Normal kidney and liver function. Normal white blood cell of 7.8, hemoglobin of 13.9 was 10.8, hematocrit 42.4 was 33.9. normal platelet count of 280. Normal ferritin at 28 was 5.Total cholesterol of 160 was 170 eight months ago. Triglyceride 92 was 117. HDL or good cholesterol of 56 was 54. LDL or bad cholesterol of 86 was 93. Iron 51 was 31. Review of Systems Constitutional: Positive for unexpected weight change (3 pound loss). Negative for activity change, appetite change, chills, diaphoresis, fatigue and fever. HENT: Positive for postnasal drip, rhinorrhea (clear rhinorrhea present for two months . has worsened per patient) and sneezing. Negative for congestion, ear discharge, ear pain, facial swelling, mouth sores, sinus pressure, sinus pain, sore throat, tinnitus, trouble swallowing and voice change. Eyes: Negative for redness and itching. Respiratory: Negative for apnea, cough, choking, chest tightness, shortness of breath, wheezing and stridor. Cardiovascular: Negative for chest pain, palpitations and leg swelling. Gastrointestinal: Negative for abdominal distention, abdominal pain, anal bleeding, blood in stool, constipation, diarrhea, nausea, rectal pain and vomiting. Endocrine: Negative for cold intolerance, heat intolerance, polydipsia, polyphagia and polyuria. Genitourinary: Negative for difficulty urinating, dysuria, enuresis, frequency and urgency. Musculoskeletal: Negative for arthralgias, back pain and myalgias. Left shoulder pain is stable. Does not want to see orthopedic Skin: Negative for rash. Allergic/Immunologic: Positive for environmental allergies. Negative for food allergies. Neurological: Negative for dizziness, tremors, seizures, syncope, facial asymmetry, speech difficulty, weakness, light-headedness, numbness and headaches. Hematological: Negative for adenopathy. Psychiatric/Behavioral: Negative for confusion and dysphoric mood. Vitals: Blood pressure 142/90, pulse 75, temperature 97.5 F (36.4 C), temperature source Temporal, resp. rate 18, height 1.651 m (5' 5 ), weight 102.6 kg (226 lb 3.2 oz), SpO2 97 %, not currently . Physical Exam Constitutional: General: She is not in acute distress. Appearance: Normal appearance. She is not ill-appearing, toxic-appearing or diaphoretic. HENT: Head: Normocephalic and atraumatic. Right Ear: Tympanic membrane, ear canal and external ear normal. There is no impacted cerumen. Left Ear: Tympanic membrane, ear canal and external ear normal. There is no impacted cerumen. Nose: Congestion (swollen red nasal mucosa ) present. No rhinorrhea. Mouth/Throat: Mouth: Mucous membranes are moist. Pharynx: Oropharynx is clear. No oropharyngeal exudate or posterior oropharyngeal erythema. Eyes: General: No scleral icterus. Right eye: No discharge. Left eye: No discharge. Extraocular Movements: Extraocular movements intact. Conjunctiva/sclera: Conjunctivae normal. Pupils: Pupils are equal, round, and reactive to light. Neck: Thyroid: No thyromegaly. Vascular: No carotid bruit or JVD. Trachea: No tracheal deviation. Cardiovascular: Rate and Rhythm: Normal rate and regular rhythm. Pulses: Normal pulses. Heart sounds: Normal heart sounds. No murmur heard. No friction rub. No gallop. Comments: No jvd, bruit or pedal edema Pulmonary: Effort: Pulmonary effort is normal. No respiratory distress. Breath sounds: Normal breath sounds. No stridor. No wheezing, rhonchi or rales. Chest: Chest wall: No tenderness. Abdominal: General: Abdomen is flat. Bowel sounds are normal. There is no distension. Palpations: Abdomen is soft. There is no mass. Tenderness: There is no abdominal tenderness. There is no right CVA tenderness, left CVA tenderness, guarding or rebound. Hernia: No hernia is present. Musculoskeletal: Cervical back: Normal range of motion and neck supple. No rigidity or tenderness. No muscular tenderness. Right lower leg: No edema (mild varicose veins). Left lower leg: No edema (mild varicose veins). Lymphadenopathy: Head: Right side of head: No submental, submandibular, tonsillar, preauricular, posterior auricular or occipital adenopathy. Left side of head: No submental, submandibular, tonsillar, preauricular, posterior auricular or occipital adenopathy. Cervical: No cervical adenopathy. Neurological: General: No focal deficit present. Mental Status: She is alert and oriented to person, place, and time. Psychiatric: Mood and Affect: Mood normal. Behavior: Behavior normal. Neurological Exam Mental Status Alert. Oriented to person, place, and time. Cranial Nerves CN III, IV, : Extraocular movements intact bilaterally. Pupils equal round and reactive to light bilaterally. Assessment and Plan 1. Hypertension . Not controlled. Continue on hydrochlorothiazide 12.5 mg a day. Continue on low salt diet. No more than a teaspoon or 2500 mg of salt a day. Exercise 150 minutes a week with walking , bicycling or swimming. If have chest pain or shortness of breath, go to er. Add lisinopril 5 mg a day and monitor blood pressures at home . Call with numbers in two weeks. Should be below 140/90 or greater than 100/50. Call if develop cough or low blood pressure If blood pressure well controlled. Recheck in 6 months 2. Anemia resolved with ferrous sulfate. Negative urinalysis and fecal occult for blood . Due to blood donation without eating enough meat to replace iron. Patient to take ferrous sulfate daily at this time if going to donate blood 3. Hypercholesteremia; well controlled. Continue on rosuvastatin 20 mg a day. documented in this encounter [facility] 12-19-2022 Instructions Elizabet Duke MD - 12/19/2022 1:00 PM EDT Hypertension . Not controlled. Continue on hydrochlorothiazide 12.5 mg a day. Continue on low salt diet. No more than a teaspoon or 2500 mg of salt a day. Exercise 150 minutes a week with walking , bicycling or swimming. If have chest pain or shortness of breath, go to er. Add lisinopril 5 mg a day and monitor blood pressures at home . Call with numbers in two weeks. Should be below 140/90 or greater than 100/50. Call if develop cough or low blood pressure If blood pressure well controlled. Recheck in 6 months 2. Anemia resolved with ferrous sulfate. Negative urinalysis and fecal occult for blood . Due to blood donation without eating enough meat to replace iron. Patient to take ferrous sulfate daily at this time if going to donate blood 3. Hypercholesteremia; well controlled. Continue on rosuvastatin 20 mg a day. documented in this encounter [facility] 07-09-2022 History of Present illness Narrative Nurse Note: Review of Systems Constitutional: Positive for fatigue. Negative for chills and fever. HENT: Positive for congestion, rhinorrhea and sneezing. Negative for ear pain, nosebleeds, postnasal drip, sinus pressure, sinus pain and sore throat. Eyes: Positive for discharge and itching. Negative for pain and redness. Respiratory: Positive for cough. Negative for chest tightness, shortness of breath and wheezing. Cough with light yellow to yellow,for 2 - 3 days. Comes and goes since April. Cardiovascular: Positive for leg swelling. Negative for chest pain and palpitations. Slight swelling Gastrointestinal: Positive for diarrhea. Negative for abdominal pain, constipation, nausea and vomiting. Diarrhea on and off for a couple weeks. Genitourinary: Negative for dysuria, frequency, hematuria and urgency. Musculoskeletal: Positive for back pain and neck pain. Chronic back and neck pain Skin: Negative for rash. Neurological: Negative for dizziness, light-headedness and headaches. Psychiatric/Behavioral: Positive for sleep disturbance. Physical Exam History of Present Illness 71 year old white female with past medical history of hypercholesteremia , hypertension, glucose intolerance, and obesity presenting for recheck of hypertension, cough, and skin check Hypertension She presents for follow-up of hypertension. HTN has been present for approximately 12 years and has been treated since approximately 12 years with diet. She indicates that she is feeling well and denies any symptoms referable to her elevated blood pressure. Specifically denies chest pain, shortness of breath at rest or exertion, nausea, vomiting, lightheadness, Tremors, constipation, diarrhea, orthopnea, worsening leg swelling, dysphagia, appetitie loss, dyspnea on exertion, loss of vision, or focal weakness. Current medication regimen is as listed in this record. She is currently experiencing the following side effects from her medication: none Has occasional right ankle swelling improved per patient Hydrochlorothiazide 12.5 mg a day Blood pressure readings taken since the last visit are: 120 over 82 Use of agenTs associated with hypertension: none. History of renal disease: no. Cough: Patient stated has had cough off and on since 05/14/22. Patient went to ED on 05/18/22 and was negative for covid 19 and influenza. No treatment per patient per patient. Patient was placed on cefdinir 300 mg twice a day on 05/30/22 and symptoms improved. Patient stated cough with yellow sputum with congestion and clear rhinorrhea occurring for 2 to 3 days every 3 day. Patient stated symptoms are not completely resolving. Has occasional frontal headache with pressure. Patient denies any fever, chills, shortness of breath, wheezing, dizziness, syncope, or constipation Patient had diarrhea over last couple of weeks but it has improved Skin lesion; Patient with history of sever atypical nevus of right upper arm in 12/12. Re exision did not show any melanoma . Showed atypical Melanocytes. Patient had area on left upper arm to look at it which was a pimple which has improved with scratching. Patient denies any other new lesions 04/11/22: Patient has hemoglobin a1c of 6.1.Total cholesterol of 170 was 161 twelve months ago. Triglyceride 117 was 104. HDL or good cholesterol of 54 was 65. LDL or bad cholesterol of 93 was 75. Glucose of 104. Normal kidney and liver function. Normal white blood cell. Hemoglobin of 11.9, hematcorit 35.4, and platelet count Review of Systems Constitutional: Positive for fatigue and unexpected weight change (2 pound loss). Negative for activity change, appetite change, chills, diaphoresis and fever. HENT: Positive for congestion, rhinorrhea and sneezing. Negative for ear discharge, ear pain, facial swelling, mouth sores, postnasal drip, sinus pressure, sinus pain, sore throat, tinnitus, trouble swallowing and voice change. Eyes: Positive for discharge and itching. Negative for redness. Respiratory: Positive for cough (cough productive of yellow sputum for 2 to 3 days). Negative for apnea, choking, chest tightness, shortness of breath, wheezing and stridor. Cardiovascular: Positive for leg swelling. Negative for chest pain and palpitations. Gastrointestinal: Positive for diarrhea (intermittent diarrhea for 2 weeks). Negative for abdominal distention, abdominal pain, anal bleeding, blood in stool, constipation, nausea, rectal pain and vomiting. Endocrine: Negative for cold intolerance, heat intolerance, polydipsia, polyphagia and polyuria. Genitourinary: Negative for difficulty urinating, dysuria, enuresis, frequency and urgency. Musculoskeletal: Positive for back pain and neck pain. Negative for arthralgias and myalgias. Skin: Negative for rash. Allergic/Immunologic: Negative for food allergies. Neurological: Negative for dizziness, tremors, seizures, syncope, facial asymmetry, speech difficulty, weakness, light-headedness, numbness and headaches. Hematological: Negative for adenopathy. Psychiatric/Behavioral: Positive for sleep disturbance. Negative for confusion and dysphoric mood. Vitals: Blood pressure 118/76, pulse 76, temperature 97.8 F (36.6 C), temperature source Oral, resp. rate 18, height 1.651 m (5' 5 ), weight 102.5 kg (226 lb), SpO2 96 %, not currently . Physical Exam Constitutional: General: She is not in acute distress. Appearance: Normal appearance. She is not ill-appearing, toxic-appearing or diaphoretic. HENT: Head: Normocephalic and atraumatic. Right Ear: Tympanic membrane, ear canal and external ear normal. There is no impacted cerumen. Left Ear: Tympanic membrane, ear canal and external ear normal. There is no impacted cerumen. Nose: Congestion and rhinorrhea present. Rhinorrhea is purulent. Right Turbinates: Enlarged and swollen. Left Turbinates: Enlarged and swollen. Right Sinus: Maxillary sinus tenderness present. Left Sinus: Maxillary sinus tenderness present. Mouth/Throat: Mouth: Mucous membranes are moist. Pharynx: Oropharynx is clear. No oropharyngeal exudate or posterior oropharyngeal erythema. Eyes: General: No scleral icterus. Right eye: No discharge. Left eye: No discharge. Extraocular Movements: Extraocular movements intact. Conjunctiva/sclera: Conjunctivae normal. Pupils: Pupils are equal, round, and reactive to light. Neck: Thyroid: No thyromegaly. Vascular: No carotid bruit or JVD. Trachea: No tracheal deviation. Cardiovascular: Rate and Rhythm: Normal rate and regular rhythm. Pulses: Normal pulses. Heart sounds: Normal heart sounds. No murmur heard. No friction rub. No gallop. Comments: No jvd, bruit or pedal edema Pulmonary: Effort: Pulmonary effort is normal. No respiratory distress. Breath sounds: Normal breath sounds. No stridor. No wheezing, rhonchi or rales. Chest: Chest wall: No tenderness. Abdominal: General: Abdomen is flat. Bowel sounds are normal. There is no distension. Palpations: Abdomen is soft. There is no mass. Tenderness: There is no abdominal tenderness. There is no right CVA tenderness, left CVA tenderness, guarding or rebound. Hernia: No hernia is present. Musculoskeletal: Cervical back: Normal range of motion and neck supple. No rigidity or tenderness. No muscular tenderness. Right lower leg: Edema (trace pedal edema with varicose vein mild) present. Left lower leg: Edema (trace pedal edema with varicose vein mild) present. Lymphadenopathy: Head: Right side of head: No submental, submandibular, tonsillar, preauricular, posterior auricular or occipital adenopathy. Left side of head: No submental, submandibular, tonsillar, preauricular, posterior auricular or occipital adenopathy. Cervical: No cervical adenopathy. Skin: Comments: No abnormal skin lesions noted except for scratch on left upper arm Neurological: General: No focal deficit present. Mental Status: She is alert and oriented to person, place, and time. Psychiatric: Mood and Affect: Mood normal. Behavior: Behavior normal. Neurological Exam Mental Status Alert. Oriented to person, place, and time. Cranial Nerves CN III, IV, : Extraocular movements intact bilaterally. Pupils equal round and reactive to light bilaterally. Assessment and Plan 1. Hypertension. Controlled. Continue with hydrochlorothiazide. Patient to check labs. Order placed. Continue on low salt diet. No more than a teaspoon or 2500 mg of salt a day. Exercise 150 minutes a week with walking , bicycling or swimming. If have chest pain or shortness of breath, go to er. 2. Dysplastic nevus. No abnormal skin noted today. Patient to wear sun screen while outside even in winter. if greater than 30 minutes outside , reapply sun screen Recheck in 3 months. 3. Sinusitis; advise claritin, susan or zyrtec. Can use nasal saline wash to help with congestion. Patient was on cefdinir with no improvement. Will place on levaquin 500 mg one pill a day for 10 days. Take probiotic over the counter to avoid diarrhea. If not improving, will need to get imaging documented in this encounter [facility] 07-09-2022 Instructions Elizabet Duke MD - 07/09/2022 1:00 PM EST Hypertension. Controlled. Continue with hydrochlorothiazide. Patient to check labs. Order placed. Continue on low salt diet. No more than a teaspoon or 2500 mg of salt a day. Exercise 150 minutes a week with walking , bicycling or swimming. If have chest pain or shortness of breath, go to er. 2. Dysplastic nevus. No abnormal skin noted today. Patient to wear sun screen while outside even in winter. if greater than 30 minutes outside , reapply sun screen Recheck in 3 months. 3. Sinusitis; advise claritin, susan or zyrtec. Can use nasal saline wash to help with congestion. Patient was on cefdinir with no improvement. Will place on levaquin 500 mg one pill a day for 10 days. Take probiotic over the counter to avoid diarrhea. If not improving, will need to get imaging documented in this encounter [facility] 05-18-2022 Hospital Discharge instructions Felix Camacho, DO - 05/18/2022 11:49 AM EST Thank you for allowing us to be involved in your care today. Please follow up as discussed during your stay. This information is included in your discharge paperwork. Appropriate follow up is essential in your continued care after today's visit. If you had any diagnostic studies (Labs, X-rays, CT-scan , Ultrasound or Cultures) have your Primary Care Physician (PCP) review them with you since there may be results that require further follow up or investigation. Return to the Emergency Department at any point with worsening conditions or concerns. The physician and staff of the Emergency Department would like to thank you for choosing our facility for your health care needs. Our goal is to provide exceptional service. You may be receiving a survey in the mail following your visit. Because your feedback is very important to us, we hope you will take the time to complete and return the survey. If for any reason, you feel that you cannot rate us Very Good or 5 for the service you received today, please let us know prior to your discharge. Please follow up with your family doctor or one of your choosing. You may find a provider through the [facility]erral [facility] by calling [phone] or by visiting [email or web address] Thank You for choosing the [facility] Emergency Department! The following attachments cannot be sent through Care Everywhere.URI (Upper Respiratory Infection) (American)documented in this encounter [facility] 05-18-2022 Physician Emergency department Note Emergency Department Report [facility] Service Date:.05/18/22 PCP: Elizabet Duke Chief Complaint: Chief Complaint Patient presents with Cough Cough and cold sx for couple days , had negative covid test on fri and yesterday, went to urgent care yesterday and the only thing they did was give me a pill for my cough which did nothing HPI Sera Vo is a 71 y.o. female presents to the ED today due to Cough nasal congestion for several days. She was in urgent care yesterday started on Tessalon Perles. She says she's been taking her mother's albuterol inhaler as well as Tessalon and Coricidin tablets. No fevers. No abdominal pain. No shortness of breath. Review of Systems: Review of Systems Constitutional: Negative for chills and fever. HENT: Positive for congestion, postnasal drip and rhinorrhea. Negative for sore throat and trouble swallowing. Eyes: Negative for discharge and visual disturbance. Respiratory: Positive for cough. Negative for shortness of breath. Cardiovascular: Negative for chest pain and leg swelling. Gastrointestinal: Negative for abdominal pain and nausea. Genitourinary: Negative for difficulty urinating and urgency. Musculoskeletal: Negative for back pain. Skin: Negative for rash. Neurological: Negative for speech difficulty and weakness. All other systems reviewed and are negative. Past Medical History: Past Medical History: Diagnosis Date Breast mass Fatigue Glucose intolerance (impaired glucose tolerance) HPV in female Hypercholesteremia Hypertension Sebaceous cyst Past Surgical History: Past Surgical History: Procedure Laterality Date EXCISION LESION SKIN EXTREMITY Right 12/20/2021 Excision atypical lesion (R) arm (3.5 cm) with internal closure. FOOT SURGERY Left neuroma HYSTERECTOMY ORIF WRIST Left Allergies: Allergies Allergen Reactions Penicillins Nausea and Vomiting Sulfa Antibiotics Nausea and Vomiting Medications: Patient's Medications New Prescriptions No medications on file Previous Medications CALCIUM-VITAMIN D 500-200 MG-UNIT TAB take by mouth daily.. COENZYME Q10 (CO Q-10) 400 MG CAP take by mouth daily.. FEXOFENADINE 180 MG TABLET take 180 mg by mouth as needed.. FLUOROURACIL 5 % SOLUTION Apply to actinic keratosis on nose small amount daily. Avoid healthy skin exposure and eye contact. Apply up to 4 weeks or till area blisters FLUTICASONE 50 MCG/ACT SUSPENSION NASAL SPRAY 2 SPRAYS BY NASAL ROUTE DAILY. HYDROCHLOROTHIAZIDE 12.5 MG TABLET Take 1 tablet by mouth daily. LUTEIN 40 MG CAPSULE Take 1 capsule by mouth daily. POTASSIUM CHLORIDE 10 MEQ TAB CR TABLET ER Take 1 tablet by mouth daily. ROSUVASTATIN 20 MG TABLET Take 1 tablet by mouth daily. VITAMIN D3 1000 UNITS TAB take 1,000 Units by mouth daily.. Modified Medications No medications on file Discontinued Medications No medications on file Family History: Family History Problem Relation Age of Onset Myocardial Infarction Mother Diabetes Father Social History: Social History Socioeconomic History Marital status: Single Spouse name: Not on file Number of children: Not on file Years of education: Not on file Highest education level: Not on file Occupational History Not on file Tobacco Use Smoking status: Never Smokeless tobacco: Never Substance and Sexual Activity Alcohol use: Never Drug use: Never Sexual activity: Not on file Other Topics Concern Not on file Social History Narrative Not on file Social Determinants of Health Financial Resource Strain: Not on file Food Insecurity: Not on file Transportation Needs: Not on file Physical Activity: Not on file Stress: Not on file Social Connections: Not on file Intimate Partner Violence: Not on file Housing Stability: Not on file Physical Exam: Physical Exam Vitals and nursing note reviewed. Constitutional: General: She is not in acute distress. Appearance: She is well-developed. She is not toxic-appearing. HENT: Head: Normocephalic and atraumatic. Right Ear: Tympanic membrane, ear canal and external ear normal. Left Ear: Tympanic membrane, ear canal and external ear normal. Nose: Mucosal edema, congestion and rhinorrhea present. Rhinorrhea is clear. Mouth/Throat: Lips: [place]. Mouth: Mucous membranes are moist. Pharynx: Oropharynx is clear. Uvula midline. Comments: No discharge from the eyes. Conjunctiva clear bilaterally. Mild nasal congestion noted with clear rhinorrhea. Post nasal drainage noted. Oropharynx clear without deviation of uvula or trismus or muffled voice. Mild anterior cervical tender lymphadenopathy noted. Maintaining secretions. No difficulty swallowing. Eyes: Extraocular Movements: Extraocular movements intact. Conjunctiva/sclera: Conjunctivae normal. Pupils: Pupils are equal, round, and reactive to light. Cardiovascular: Rate and Rhythm: Normal rate and regular rhythm. Pulses: Normal pulses. Heart sounds: Normal heart sounds. Pulmonary: Effort: Pulmonary effort is normal. Breath sounds: Normal breath sounds. Abdominal: General: Bowel sounds are normal. Palpations: Abdomen is soft. Tenderness: There is no abdominal tenderness. There is no guarding. Musculoskeletal: General: Normal range of motion. Cervical back: Normal range of motion and neck supple. Skin: General: Skin is warm and dry. Capillary Refill: Capillary refill takes less than 2 seconds. Findings: No erythema or rash. Neurological: General: No focal deficit present. Mental Status: She is alert and oriented to person, place, and time. Cranial Nerves: No cranial nerve deficit. Deep Tendon Reflexes: Reflexes normal. Psychiatric: Behavior: Behavior normal. Thought Content: Thought content normal. Vital Signs During ED Visit Patient Vitals for the past 24 hrs: BP Temp Temp src Pulse Resp SpO2 05/18/22 1113 146/79 98.1 F (36.7 C) Oral 81 18 96 % Orders/Results: Orders Placed This Encounter [facility] - NASOPHARYNGEAL INFLUENZA A AND B, PCR Results for orders placed or performed during the hospital encounter of 05/18/22 [facility] 1 - NASOPHARYNGEAL Specimen: NASOPHARYNGEAL; Fluid/Swab Result Value Ref Range SARS COV 2 RNA, QL REAL TIME RT PCR NOT DETECTED NOT DETECTED NARRATIVE -1 This test was performed using isothermal MATHIEU and has been approved as Emergency Use Authorization (EUA) for the qualitative detection [id number] nucleic acid. INFLUENZA A AND B, PCR Result Value Ref Range INFLUENZA A NEGATIVE NEGATIVE INFLUENZA B NEGATIVE NEGATIVE Radiographic Imaging No orders to display Procedures: Procedures Moderate Sedation Procedure: No Medications Ordered/Given During ED Visit Medications - No data to display Medical Decision Making Patient with viral illness. Coronavirus and flu negative. She stable. She is not hypoxic. She has clear lung sounds. All upper respiratory. Would recommend continuing Coricidin and Tessalon Perles. She can take her albuterol inhaler every 4 hours as needed. Follow-up primary care. Certain nontoxic. Appropriate for discharge. Clinical Impression: 1. Viral upper respiratory illness Acute No follow-ups on file. New Prescriptions No medications on file Discontinued Medications No medications on file An After Visit Summary was printed and given to the patient with above information. Felix Camacho DO 05/18/22 1154 [facility] Work Phone: 05-18-2022 Emergency department Note Emergency Department Report [facility] Service Date:.05/18/22 PCP: Elizabet Duke Chief Complaint: Chief Complaint Patient presents with Cough Cough and cold sx for couple days , had negative covid test on fri and yesterday, went to urgent care yesterday and the only thing they did was give me a pill for my cough which did nothing HPI Sera Vo is a 71 y.o. female presents to the ED today due to Cough nasal congestion for several days. She was in urgent care yesterday started on Tessalon Perles. She says she's been taking her mother's albuterol inhaler as well as Tessalon and Coricidin tablets. No fevers. No abdominal pain. No shortness of breath. Review of Systems: Review of Systems Constitutional: Negative for chills and fever. HENT: Positive for congestion, postnasal drip and rhinorrhea. Negative for sore throat and trouble swallowing. Eyes: Negative for discharge and visual disturbance. Respiratory: Positive for cough. Negative for shortness of breath. Cardiovascular: Negative for chest pain and leg swelling. Gastrointestinal: Negative for abdominal pain and nausea. Genitourinary: Negative for difficulty urinating and urgency. Musculoskeletal: Negative for back pain. Skin: Negative for rash. Neurological: Negative for speech difficulty and weakness. All other systems reviewed and are negative. Past Medical History: Past Medical History: Diagnosis Date Breast mass Fatigue Glucose intolerance (impaired glucose tolerance) HPV in female Hypercholesteremia Hypertension Sebaceous cyst Past Surgical History: Past Surgical History: Procedure Laterality Date EXCISION LESION SKIN EXTREMITY Right 12/20/2021 Excision atypical lesion (R) arm (3.5 cm) with internal closure. FOOT SURGERY Left neuroma HYSTERECTOMY ORIF WRIST Left Allergies: Allergies Allergen Reactions Penicillins Nausea and Vomiting Sulfa Antibiotics Nausea and Vomiting Medications: Patient's Medications New Prescriptions No medications on file Previous Medications CALCIUM-VITAMIN D 500-200 MG-UNIT TAB take by mouth daily.. COENZYME Q10 (CO Q-10) 400 MG CAP take by mouth daily.. FEXOFENADINE 180 MG TABLET take 180 mg by mouth as needed.. FLUOROURACIL 5 % SOLUTION Apply to actinic keratosis on nose small amount daily. Avoid healthy skin exposure and eye contact. Apply up to 4 weeks or till area blisters FLUTICASONE 50 MCG/ACT SUSPENSION NASAL SPRAY 2 SPRAYS BY NASAL ROUTE DAILY. HYDROCHLOROTHIAZIDE 12.5 MG TABLET Take 1 tablet by mouth daily. LUTEIN 40 MG CAPSULE Take 1 capsule by mouth daily. POTASSIUM CHLORIDE 10 MEQ TAB CR TABLET ER Take 1 tablet by mouth daily. ROSUVASTATIN 20 MG TABLET Take 1 tablet by mouth daily. VITAMIN D3 1000 UNITS TAB take 1,000 Units by mouth daily.. Modified Medications No medications on file Discontinued Medications No medications on file Family History: Family History Problem Relation Age of Onset Myocardial Infarction Mother Diabetes Father Social History: Social History Socioeconomic History Marital status: Single Spouse name: Not on file Number of children: Not on file Years of education: Not on file Highest education level: Not on file Occupational History Not on file Tobacco Use Smoking status: Never Smokeless tobacco: Never Substance and Sexual Activity Alcohol use: Never Drug use: Never Sexual activity: Not on file Other Topics Concern Not on file Social History Narrative Not on file Social Determinants of Health Financial Resource Strain: Not on file Food Insecurity: Not on file Transportation Needs: Not on file Physical Activity: Not on file Stress: Not on file Social Connections: Not on file Intimate Partner Violence: Not on file Housing Stability: Not on file Physical Exam: Physical Exam Vitals and nursing note reviewed. Constitutional: General: She is not in acute distress. Appearance: She is well-developed. She is not toxic-appearing. HENT: Head: Normocephalic and atraumatic. Right Ear: Tympanic membrane, ear canal and external ear normal. Left Ear: Tympanic membrane, ear canal and external ear normal. Nose: Mucosal edema, congestion and rhinorrhea present. Rhinorrhea is clear. Mouth/Throat: Lips: [place]. Mouth: Mucous membranes are moist. Pharynx: Oropharynx is clear. Uvula midline. Comments: No discharge from the eyes. Conjunctiva clear bilaterally. Mild nasal congestion noted with clear rhinorrhea. Post nasal drainage noted. Oropharynx clear without deviation of uvula or trismus or muffled voice. Mild anterior cervical tender lymphadenopathy noted. Maintaining secretions. No difficulty swallowing. Eyes: Extraocular Movements: Extraocular movements intact. Conjunctiva/sclera: Conjunctivae normal. Pupils: Pupils are equal, round, and reactive to light. Cardiovascular: Rate and Rhythm: Normal rate and regular rhythm. Pulses: Normal pulses. Heart sounds: Normal heart sounds. Pulmonary: Effort: Pulmonary effort is normal. Breath sounds: Normal breath sounds. Abdominal: General: Bowel sounds are normal. Palpations: Abdomen is soft. Tenderness: There is no abdominal tenderness. There is no guarding. Musculoskeletal: General: Normal range of motion. Cervical back: Normal range of motion and neck supple. Skin: General: Skin is warm and dry. Capillary Refill: Capillary refill takes less than 2 seconds. Findings: No erythema or rash. Neurological: General: No focal deficit present. Mental Status: She is alert and oriented to person, place, and time. Cranial Nerves: No cranial nerve deficit. Deep Tendon Reflexes: Reflexes normal. Psychiatric: Behavior: Behavior normal. Thought Content: Thought content normal. Vital Signs During ED Visit Patient Vitals for the past 24 hrs: BP Temp Temp src Pulse Resp SpO2 05/18/22 1113 146/79 98.1 F (36.7 C) Oral 81 18 96 % Orders/Results: Orders Placed This Encounter [facility] - NASOPHARYNGEAL INFLUENZA A AND B, PCR Results for orders placed or performed during the hospital encounter of 05/18/22 [facility] - NASOPHARYNGEAL Specimen: NASOPHARYNGEAL; Fluid/Swab Result Value Ref Range SARS COV 2 RNA, QL REAL TIME RT PCR NOT DETECTED NOT DETECTED NARRATIVE -1 This test was performed using isothermal MATHIEU and has been approved as Emergency Use Authorization (EUA) for the qualitative detection [id number] nucleic acid. INFLUENZA A AND B, PCR Result Value Ref Range INFLUENZA A NEGATIVE NEGATIVE INFLUENZA B NEGATIVE NEGATIVE Radiographic Imaging No orders to display Procedures: Procedures Moderate Sedation Procedure: No Medications Ordered/Given During ED Visit Medications - No data to display Medical Decision Making Patient with viral illness. Coronavirus and flu negative. She stable. She is not hypoxic. She has clear lung sounds. All upper respiratory. Would recommend continuing Coricidin and Tessalon Perles. She can take her albuterol inhaler every 4 hours as needed. Follow-up primary care. Certain nontoxic. Appropriate for discharge. Clinical Impression: 1. Viral upper respiratory illness Acute No follow-ups on file. New Prescriptions No medications on file Discontinued Medications No medications on file An After Visit Summary was printed and given to the patient with above information. Felix Camacho DO 05/18/22 1154 documented in this encounter [facility] 05-17-2022 Instructions Edwar Butts CNP - 05/17/2022 2:14 PM EST Plan: Tessalon as prescribed. Make a follow up appointment with your primary care provider within 7 days for recheck. If symptoms worsen, change, or new symptoms develop go instead immediately to the nearest emergency room for further evaluation and treatment. The following attachments cannot be sent through Care Everywhere.URI (Upper Respiratory Infection): Viral (American)documented in this encounter [facility] 05-17-2022 History of Present illness Narrative Images from the original note were not included. Patient Name: [facility] Location: [place] [address] [facility] [address] Date Of : Date Of Visit: 1950 05/17/2022 MRN# Provider: [id number] Edwar Butts CNP Chief Complaint Patient presents with Cough Productive Cough, chest congestion, wheezing,scratchy throat, sneezing, started Friday-neg covid on Fri Assessment & Plan 1. Viral URI benzonatate (TESSALON) 200 MG capsule No follow-ups on file. Medical Decision Making See HPI. See Exam findings. Vital signs reviewed. Coughing, chest congestion, wheezing, sore throat, sneezing. Symptoms started 4 days ago. A home COVID-19 test was negative 2 days ago. Exam highlights: Lungs clear. Patient declined albuterol inhaler. Patient accepted to try Tessalon. Diagnosis Viral URI . Differential considered included covid-19, bacterial sinusitis, seasonal allergies, asthma, influenza . Plan: Tessalon as prescribed. Make a follow up appointment with your primary care provider within 7 days for recheck. If symptoms worsen, change, or new symptoms develop go instead immediately to the nearest emergency room for further evaluation and treatment. Subjective 71 y.o. female presents with Cough (Productive Cough, chest congestion, wheezing,scratchy throat, sneezing, started Friday-neg covid on Fri) Coughing, chest congestion, wheezing, sore throat, sneezing. Symptoms started 4 days ago. A home COVID-19 test was -2 days ago. Cough Associated symptoms include rhinorrhea, a sore throat and wheezing. Pertinent negatives include no chest pain, ear pain, fever, rash or shortness of breath. Review Of Systems Review of Systems Constitutional: Negative for fever. HENT: Positive for congestion, rhinorrhea and sore throat. Negative for ear pain. Respiratory: Positive for cough and wheezing. Negative for shortness of breath and stridor. Cardiovascular: Negative for chest pain and palpitations. Gastrointestinal: Negative for diarrhea and vomiting. Skin: Negative for rash. Neurological: Negative for tremors and weakness. Hematological: Negative for adenopathy. Psychiatric/Behavioral: Negative for confusion. Medical History History reviewed. No pertinent past medical history. Past Surgical History: Procedure Laterality Date ANKLE FRACTURE SURGERY Right x3 ANKLE FRACTURE SURGERY Left HYSTERECTOMY WRIST SURGERY Left Patient Active Problem List Diagnosis Closed nondisplaced fracture of fifth metatarsal bone of left foot Social History Social History Tobacco Use Smoking status: Never Smokeless tobacco: Never Family History History reviewed. No pertinent family history. Objective Physical Exam BP 134/79 Pulse 99 Temp 99 F (37.2 C) Resp 16 Ht 5' 5 Wt 102 kg (224 lb 12.8 oz) SpO2 98% BMI 37.41 kg/m Vision/Hearing Exam:No results found. Physical Exam Constitutional: General: She is not in acute distress. Appearance: Normal appearance. She is not ill-appearing, toxic-appearing or diaphoretic. HENT: Head: Normocephalic and atraumatic. Right Ear: External ear normal. Left Ear: External ear normal. Mouth/Throat: Mouth: Mucous membranes are moist. Pharynx: No oropharyngeal exudate or posterior oropharyngeal erythema. Eyes: Conjunctiva/sclera: Conjunctivae normal. Cardiovascular: Rate and Rhythm: Regular rhythm. Heart sounds: Normal heart sounds. Pulmonary: Effort: Pulmonary effort is normal. No respiratory distress. Breath sounds: Normal breath sounds. No stridor. No wheezing, rhonchi or rales. Abdominal: General: There is no distension. Lymphadenopathy: Cervical: No cervical adenopathy. Skin: General: Skin is warm and dry. Capillary Refill: Capillary refill takes less than 2 seconds. Coloration: Skin is not jaundiced. Neurological: General: No focal deficit present. Mental Status: She is alert and oriented to person, place, and time. Motor: No weakness. Coordination: Coordination normal. Psychiatric: Behavior: Behavior normal. Thought Content: Thought content normal. Procedure Notes Procedures Results No results found for this or any previous visit (from the past 168 hour(s)). No orders to display Orders Placed This Visit No orders of the defined types were placed in this encounter. Medication List At End Of Visit Current Outpatient Medications Medication Sig Dispense Refill calcium carbonate-vitamin D2 500 mg(1,250mg) -200 unit tablet Take 1 (one) tablet (500 mg total) by mouth 2 (two) times a day . coenzyme Q10 400 mg cap Take by mouth daily . hydroCHLOROthiazide (HYDRODIURIL) 12.5 MG tablet Take 1 (one) tablet (12.5 mg total) by mouth daily . potassium chloride 10 MEQ CR tablet Take 1 (one) tablet (10 mEq total) by mouth daily . rosuvastatin (CRESTOR) 20 MG tablet TAKE 1 TABLET BY MOUTH EVERY DAY vitamin E 1,000 unit cap Take 1 (one) capsule (1,000 Units total) by mouth daily . benzonatate (TESSALON) 200 MG capsule Take 1 (one) capsule (200 mg total) by mouth 3 (three) times a day as needed for cough . 20 capsule 0 co-enzyme Q-10 30 mg capsule Take 1 (one) capsule (30 mg total) by mouth 3 (three) times a day . No current facility-administered medications for this visit. Patient Instructions Plan: Tessalon as prescribed. Make a follow up appointment with your primary care provider within 7 days for recheck. If symptoms worsen, change, or new symptoms develop go instead immediately to the nearest emergency room for further evaluation and treatment. documented in this encounter [place] [id number] History of Present illness Narrative Nurse Note: Review of Systems Constitutional: Negative for chills, fatigue and fever. HENT: Positive for congestion, postnasal drip, rhinorrhea and sneezing. Negative for ear pain, nosebleeds, sinus pressure, sinus pain and sore throat. Eyes: Positive for itching. Negative for pain, discharge and redness. Respiratory: Positive for cough. Negative for chest tightness, shortness of breath and wheezing. Cough with White phlegm for a week Cardiovascular: Positive for leg swelling. Negative for chest pain and palpitations. Gastrointestinal: Negative for abdominal pain, constipation, diarrhea, nausea and vomiting. Genitourinary: Negative for dysuria, frequency, hematuria and urgency. Musculoskeletal: Negative for back pain and neck pain. Skin: Negative for rash. Neurological: Negative for dizziness, light-headedness and headaches. Psychiatric/Behavioral: Positive for sleep disturbance. Physical Exam History of Present Illness 71 year old white female with past medical history of hypercholesteremia , hypertension, glucose intolerance, and obesity presenting for recheck of hypertension and skin check Hypertension She presents for follow-up of hypertension. HTN has been present for approximately 12 years and has been treated since approximately 12 years with diet. She indicates that she is feeling well and denies any symptoms referable to her elevated blood pressure. Specifically denies chest pain, shortness of breath, nausea, vomiting, lightheadness, headache, Tremors, constipation, diarrhea, orthopnea, worsening leg swelling, dysphagia, appetitie loss, dyspnea on exertion, loss of vision, or focal weakness. Current medication regimen is as listed in this record. She is currently experiencing the following side effects from her medication: none Has occasional right ankle swelling improved per patient Hydrochlorothiazide 12.5 mg a day Blood pressure readings taken since the last visit are: 120 over 80 Use of agenTs associated with hypertension: none. History of renal disease: no. Skin lesion; Patient with history of sever atypical nevus of right upper arm in 12/12. Re exision did not show any melanoma . Showed atypical Melanocytes. Patient concerned about lesion on nose noticed in last couple of weeks. Patient denies any other new lesions Has been having nasal congestion, rhinorrhea and cough with white sputum with eye itching with allergies for last two weeks. Taking allergy medication daily. Medication is helping per patient Review of Systems Constitutional: Positive for unexpected weight change (5 pound gain). Negative for activity change, appetite change, chills, diaphoresis, fatigue and fever. HENT: Positive for congestion, postnasal drip, rhinorrhea and sneezing. Negative for ear discharge, ear pain, facial swelling, mouth sores, sinus pressure, sinus pain, sore throat, tinnitus, trouble swallowing and voice change. Eyes: Positive for itching. Negative for redness. Respiratory: Positive for cough. Negative for apnea, choking, chest tightness, shortness of breath, wheezing and stridor. Cardiovascular: Positive for leg swelling. Negative for chest pain and palpitations. Gastrointestinal: Negative for abdominal distention, abdominal pain, anal bleeding, blood in stool, constipation, diarrhea, nausea, rectal pain and vomiting. Endocrine: Negative for cold intolerance, heat intolerance, polydipsia, polyphagia and polyuria. Genitourinary: Negative for difficulty urinating, dysuria, enuresis, frequency and urgency. Musculoskeletal: Negative for arthralgias, back pain and myalgias. Skin: Negative for rash. Allergic/Immunologic: Negative for food allergies. Neurological: Negative for dizziness, tremors, seizures, syncope, facial asymmetry, speech difficulty, weakness, light-headedness, numbness and headaches. Hematological: Negative for adenopathy. Psychiatric/Behavioral: Positive for sleep disturbance. Negative for confusion and dysphoric mood. Vitals: Blood pressure 132/84, pulse 86, temperature 97.6 F (36.4 C), temperature source Oral, resp. rate 18, height 1.651 m (5' 5 ), weight 103.7 kg (228 lb 9.6 oz), SpO2 94 %, not currently . Physical Exam Constitutional: General: She is not in acute distress. Appearance: Normal appearance. She is not ill-appearing, toxic-appearing or diaphoretic. HENT: Head: Normocephalic and atraumatic. Right Ear: Tympanic membrane, ear canal and external ear normal. There is no impacted cerumen. Left Ear: Tympanic membrane, ear canal and external ear normal. There is no impacted cerumen. Nose: Congestion (swollen red nasal mucosa with yellow discharge) present. No rhinorrhea. Mouth/Throat: Mouth: Mucous membranes are moist. Pharynx: Oropharynx is clear. No oropharyngeal exudate or posterior oropharyngeal erythema. Eyes: General: No scleral icterus. Right eye: No discharge. Left eye: No discharge. Extraocular Movements: Extraocular movements intact. Conjunctiva/sclera: Conjunctivae normal. Pupils: Pupils are equal, round, and reactive to light. Neck: Thyroid: No thyromegaly. Vascular: No carotid bruit or JVD. Trachea: No tracheal deviation. Cardiovascular: Rate and Rhythm: Normal rate and regular rhythm. Pulses: Normal pulses. Heart sounds: Normal heart sounds. No murmur heard. No friction rub. No gallop. Comments: No jvd, bruit or pedal edema Pulmonary: Effort: Pulmonary effort is normal. No respiratory distress. Breath sounds: Normal breath sounds. No stridor. No wheezing, rhonchi or rales. Chest: Chest wall: No tenderness. Abdominal: General: Abdomen is flat. Bowel sounds are normal. There is no distension. Palpations: Abdomen is soft. There is no mass. Tenderness: There is no abdominal tenderness. There is no right CVA tenderness, left CVA tenderness, guarding or rebound. Hernia: No hernia is present. Musculoskeletal: Cervical back: Normal range of motion and neck supple. No rigidity or tenderness. No muscular tenderness. Right lower leg: No edema (mild to moderate varicose veins). Left lower leg: No edema (mild to moderate varicose veins). Lymphadenopathy: Head: Right side of head: No submental, submandibular, tonsillar, preauricular, posterior auricular or occipital adenopathy. Left side of head: No submental, submandibular, tonsillar, preauricular, posterior auricular or occipital adenopathy. Cervical: No cervical adenopathy. Skin: Comments: Noted three small red macular lesion with no scabing. No other abnormal moles or lesions noted Neurological: Mental Status: She is alert and oriented to person, place, and time. Psychiatric: Mood and Affect: Mood normal. Behavior: Behavior normal. Neurological Exam Mental Status Alert. Oriented to person, place, and time. Cranial Nerves CN III, IV, : Extraocular movements intact bilaterally. Pupils equal round and reactive to light bilaterally. Assessment and Plan 1. Hypertension. Controlled. Continue on low salt diet. No more than a teaspoon or 2500 mg of salt a day. Exercise 150 minutes a week with walking , bicycling or swimming. If have chest pain or shortness of breath, go to er. Get lab work before next visit 2. Actinic keratosis on nose. Apply small amount with gloves once a day to red areas on nose till it blisters or one month has passed.Make sure to apply sun screen when outside and reapply every 30 to 60 minutes. Will have broad brim hat to avoid sun exposure documented in this encounter [facility] 04-10-2022 Instructions Elizabet Duke MD - 04/10/2022 11:00 AM EDT . Hypertension. Controlled. Continue on low salt diet. No more than a teaspoon or 2500 mg of salt a day. Exercise 150 minutes a week with walking , bicycling or swimming. If have chest pain or shortness of breath, go to er. Get lab work before next visit 2. Actinic keratosis on nose. Apply small amount with gloves once a day to red areas on nose till it blisters or one month has passed. Make sure to apply sun screen when outside and reapply every 30 to 60 minutes. Will have broad brim hat to avoid sun exposure documented in this encounter [facility] 03-27-2022 History of Present illness Narrative Images from the original note were not included. Patient Name: [facility] Location: [place] [facility] [address] [facility] [address] Date Of : Date Of Visit: 1950 03/27/2022 MRN# Provider: [id number] Génesis Savage, CINTIA Chief Complaint Patient presents with Poison Umm Was weeding flower bed x3 days ago now with rash on hands chest and chin Assessment & Plan 1. Contact dermatitis, unspecified contact dermatitis type, unspecified trigger methylPREDNISolone sod suc(PF) (SOLU-medrol) 80 mg predniSONE (DELTASONE) 20 MG tablet No follow-ups on file. Medical Decision Making Considered contact dermatitis, shingles, scabies, insect bites, cellulitis, hives, fungal infection, erythema multiforme. The patient had known contact with poison umm after weeding her flower bed approximately 3 days ago symptoms are consistent with contact dermatitis secondary to poison umm. The patient is requesting an injection today. The patient was given Solu-Medrol 80 mg IM x1 in clinic today. The patient tolerated well. The patient was also given short prednisone course for management of contact dermatitis. The patient was advised to seek evaluation in the emergency department should symptoms acutely worsen. The patient was advised to follow up with their primary care provider within 7-14 days should symptoms fail to improve. Discussed plan of care with patient. Patient is agreeable to plan of care. Patient denies any additional questions or concerns at this time. Additional Clinical Comments Discussed over the counter medications for symptomatic management and side effects of medications. Recommended taking all medications with food and to stop medications if they develop any signs of an allergic reaction. Educated patient and/or guardian about signs and symptoms that would warrant further immediate evaluation. Recommended that they should return to urgent care, make an appointment with their family physician, or go to the emergency room if symptoms persist or get acutely worse. Recommended follow up within the next week with their PCP or to get established with a PCP soon in order to follow up appropriately. Subjective 71 y.o. female presents with Poison Umm (Was weeding flower bed x3 days ago now with rash on hands chest and chin) 71-year-old female presents to the urgent care today with complaints of contact dermatitis. The patient reports that she was weeding her flower bed approximately 3 days ago when she came into contact with poison umm. She reports that she has had a itchy red rash on bilateral hands wrists and forearms which is subsequently spread up the chest and neck. The patient reports that in the past she has required prednisone both p.o. and or a steroid injection. The patient denies any cardiac history. The patient reports that she is tried to use OTC creams and lotions to manage the poison umm, however symptoms progressively worsened. Poison Umm This is a new problem. The current episode started in the past 7 days. The problem has been gradually worsening since onset. The affected locations include the neck, chest, left wrist, left arm, left hand, right arm, right hand and right wrist. The rash is characterized by blistering, itchiness and redness. She was exposed to plant contact. Pertinent negatives include no anorexia, congestion, cough, diarrhea, eye pain, facial edema, fatigue, fever, joint pain, nail changes, rhinorrhea, shortness of breath, sore throat or vomiting. Past treatments include anti-itch cream. The treatment provided mild relief. There is no history of allergies, asthma, eczema or varicella. Review Of Systems Review of Systems Constitutional: Negative for chills, diaphoresis, fatigue and fever. HENT: Negative for congestion, drooling, hearing loss, rhinorrhea, sore throat and voice change. Eyes: Negative for pain and visual disturbance. Respiratory: Negative for cough, chest tightness, shortness of breath and wheezing. Cardiovascular: Negative for chest pain, palpitations and leg swelling. Gastrointestinal: Negative for abdominal distention, anorexia, constipation, diarrhea, nausea and vomiting. Genitourinary: Negative for difficulty urinating. Musculoskeletal: Negative for arthralgias, joint pain, joint swelling and myalgias. Skin: Positive for color change and rash. Negative for nail changes. Neurological: Negative for dizziness and light-headedness. Psychiatric/Behavioral: Negative for confusion. Medical History History reviewed. No pertinent past medical history. Past Surgical History: Procedure Laterality Date ANKLE FRACTURE SURGERY Right x3 ANKLE FRACTURE SURGERY Left HYSTERECTOMY WRIST SURGERY Left Patient Active Problem List Diagnosis Closed nondisplaced fracture of fifth metatarsal bone of left foot Social History Social History Tobacco Use Smoking status: Never Smokeless tobacco: Never Family History History reviewed. No pertinent family history. Objective Physical Exam BP 135/88 (BP Location: Left arm, Patient Position: Sitting, BP Cuff Size: Adult) Pulse (!) 103 Temp 97.8 F (36.6 C) (Temporal) Resp 16 Ht 5' 5 Wt 100.2 kg (221 lb) SpO2 96% BMI 36.78 kg/m Vision/Hearing Exam:No results found. Physical Exam Vitals and nursing note reviewed. Constitutional: Appearance: Normal appearance. She is normal weight. HENT: Head: Normocephalic. Musculoskeletal: General: Normal range of motion. Skin: General: Skin is warm. Capillary Refill: Capillary refill takes less than 2 seconds. Findings: Erythema and rash present. Rash is vesicular. Comments: Vesicular erythematous rash to bilateral hands, bilateral wrists, bilateral forearms, chest and neck. Neurological: General: No focal deficit present. Mental Status: She is alert and oriented to person, place, and time. Mental status is at baseline. GCS: GCS eye subscore is 4. GCS verbal subscore is 5. GCS motor subscore is 6. Sensory: Sensation is intact. Motor: Motor function is intact. Coordination: Coordination is intact. Psychiatric: Mood and Affect: Mood normal. Behavior: Behavior normal. Thought Content: Thought content normal. Procedure Notes Procedures Results No results found for this or any previous visit (from the past 168 hour(s)). No orders to display Orders Placed This Visit No orders of the defined types were placed in this encounter. Medication List At End Of Visit Current Outpatient Medications Medication Sig Dispense Refill calcium carbonate-vitamin D2 500 mg(1,250mg) -200 unit tablet Take 1 tablet by mouth 2 (two) times a day. coenzyme Q10 400 mg cap Take by mouth daily . hydroCHLOROthiazide (HYDRODIURIL) 12.5 MG tablet Take 1 tablet by mouth daily . potassium chloride 10 MEQ CR tablet Take 1 tablet by mouth daily . rosuvastatin (CRESTOR) 20 MG tablet TAKE 1 TABLET BY MOUTH EVERY DAY co-enzyme Q-10 30 mg capsule Take 30 mg by mouth 3 (three) times a day. predniSONE (DELTASONE) 20 MG tablet Take 2 (two) tablets (40 mg total) by mouth daily for 5 days . 10 tablet 0 vitamin E 1,000 unit cap Take 1,000 Units by mouth daily. No current facility-administered medications for this visit. Patient Instructions If symptoms worsen you should seek evaluation at the ED. Please follow up with primary care provider in one week. You may take over the counter pain relief medication as directed on package insert. This could include alternating between Acetaminophen (Tylenol) and Ibuprofen (Motrin). Be sure to avoid doubling NSAIDS such as Ibuprofen, Aleve, and Aspirin. Take Prednisone as ordered. Do not suddenly stop medication. You should take the dose first thing in the AM, once daily. Do not take Prednisone with other NSAID's such as Ibuprofen/Aleve/Advil/Aspirin/Nap roxen. documented in this encounter [facility] 03-27-2022 Instructions Génesis Savage CNP - 03/27/2022 8:29 PM EDT If symptoms worsen you should seek evaluation at the ED. Please follow up with primary care provider in one week. You may take over the counter pain relief medication as directed on package insert. This could include alternating between Acetaminophen (Tylenol) and Ibuprofen (Motrin). Be sure to avoid doubling NSAIDS such as Ibuprofen, Aleve, and Aspirin. Take Prednisone as ordered. Do not suddenly stop medication. You should take the dose first thing in the AM, once daily. Do not take Prednisone with other NSAID's such as Ibuprofen/Aleve/Advil/Aspirin/Nap roxen. The following attachments cannot be sent through Care Everywhere.Poison [place] [address] [place] ([place])documented in this encounter [facility] 01-01-2022 History of Present illness Narrative General Plastics Review of Systems: Do you have any of the following: Chills, Fatigue, Fever or Night Sweats: no. Ear pain or eye discharge: no. Hearing loss or visual changes: no. Sore throat or chronic cough: no. Shortness of breath: no. Chest pain, swelling, or heart palpitations: no. Abdominal pain: no. Constipation or diarrhea: no. Heartburn or Nausea: no. Rash or skin problems: no. Dizziness or numbness: no. Headaches or Migraines: no. Seizures: no. Joint pain, joint swelling or muscle weakness: no. Bruise or bleed easily: no. Any swollen lymph nodes: no. Have you used any nicotine products in the last 3 months? no. Do you use any cannabis, THC or marijuana containing products? no. Are you currently taking the medication Adipex? no. Subjective: Sera Vo is an 71 y.o. female who presents for evaluation of Excision lesion to right upper arm on 12/21/21. Bandage intact. She denies any pain. Allergies Allergen Reactions Penicillins Nausea and Vomiting Sulfa Antibiotics Nausea and Vomiting Current Outpatient Medications Medication Sig Dispense Refill calcium-vitamin D 500-200 MG-UNIT Tab take by mouth daily.. Coenzyme Q10 (CO Q-10) 400 MG Cap take by mouth daily.. fexofenadine 180 MG tablet take 180 mg by mouth as needed.. fluticasone 50 MCG/ACT Suspension nasal spray 2 sprays by Nasal route daily. 16 g 5 hydroCHLOROthiazide 12.5 MG tablet Take 1 tablet by mouth daily. 90 tablet 2 Lutein 40 MG capsule Take 1 capsule by mouth daily. 30 capsule 11 potassium chloride 10 MEQ Tab CR tablet ER Take 1 tablet by mouth daily. 90 tablet 2 rosuvastatin 20 MG tablet Take 1 tablet by mouth daily. 90 tablet 2 Vitamin D3 1000 units Tab take 1,000 Units by mouth daily.. No current facility-administered medications for this visit. Past Medical History: Diagnosis Date Breast mass Fatigue Glucose intolerance (impaired glucose tolerance) HPV in female Hypercholesteremia Hypertension Sebaceous cyst Past Surgical History: Procedure Laterality Date EXCISION LESION SKIN EXTREMITY Right 12/20/2021 Excision atypical lesion (R) arm (3.5 cm) with internal closure. FOOT SURGERY Left neuroma HYSTERECTOMY ORIF WRIST Left Family History Problem Relation Age of Onset Myocardial Infarction Mother Diabetes Father Social History Socioeconomic History Marital status: Single Spouse name: Not on file Number of children: Not on file Years of education: Not on file Highest education level: Not on file Occupational History Not on file Tobacco Use Smoking status: Never Smoker Smokeless tobacco: Never Used Substance and Sexual Activity Alcohol use: Never Drug use: Never Sexual activity: Not on file Other Topics Concern Not on file Social History Narrative Not on file Social Determinants of Health Financial Resource Strain: Not on file Food Insecurity: Not on file Transportation Needs: Not on file Physical Activity: Not on file Stress: Not on file Social Connections: Not on file Intimate Partner Violence: Not on file Housing Stability: Not on file Review of Systems Pertinent items are noted in HPI. General Plastics Review of Systems: Do you have any of the following: Chills, Fatigue, Fever or Night Sweats: no. Ear pain or eye discharge: no. Hearing loss or visual changes: no. Sore throat or chronic cough: no. Shortness of breath: no. Chest pain, swelling, or heart palpitations: no. Abdominal pain: no. Constipation or diarrhea: no. Heartburn or Nausea: no. Rash or skin problems: no. Dizziness or numbness: no. Headaches or Migraines: no. Seizures: no. Joint pain, joint swelling or muscle weakness: no. Bruise or bleed easily: no. Any swollen lymph nodes: no. Have you used any nicotine products in the last 3 months? no. Do you use any cannabis, THC or marijuana containing products? no. Are you currently taking the medication Adipex? no. Objective: BP 114/73 Pulse 103 Temp 97.6 F (36.4 C) (Temporal) Ht 1.651 m (5' 5 ) Wt 101.6 kg (224 lb) BMI 37.28 kg/m Smoking Status Never Smoker The excision site of the right arm is well approximated. She does have a rash peripheral to this from the Band-Aid she is applying over the site. The Steri-Strips were removed. There is no evidence of infection. I covered this with gauze and a Coban wrap. I had advised her that she can use hydrocortisone or Benadryl cream for the rash. 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 One section had atypical melanocytes extending to the periphery however the pathologist note that she has severely sun damage skin and it would be impossible to remove all atypical melanocytes. Surveillance was recommended. This was reviewed with the patient. I will see her back in 2 weeks for suture removal. Assessment: Atypical melanocytes right upper arm Plan: Pt to RETURN in 2 weeks FOR RECHECK. They are encouraged to call in the interim with any problems or questions relating to this encounter. documented in this encounter [facility] 12-20-2021 Nurse Surgical operation note Written and verbal discharge instructions given to pt and family, verbalizes understanding. Pt ambulated to car with AVS and Rx in hand. [facility] 12-20-2021 Nurse Note Written and verbal discharge instructions given to pt and family, verbalizes understanding. Pt ambulated to car with AVS and Rx in hand. Patient to outpatient bay 12, report given to Zach Davidson RN, patient awake alert and oriented x4, Started on PO Fluids, denies pain at this time, Family at bedside, monitors reapplied, vital signs stable, Fire risk level of 1 determined during Time Out. Nonflammable prep in use. Monitored by: room staff OR room temp: 68F OR room humidity: 42% documented in this encounter [facility] 12-20-2021 Hospital Discharge instructions Catherine Vaca MD - 12/20/2021 11:20 AM EDT Keep arm elevated as much as conveniently possible to reduce bleeding and swelling. Take the oral antibiotic (Keflex) 2 x a day until finished. May shower over dressing, but do not scrub over it. Do not remove dressing until seen in the office. documented in this encounter [facility] 12-20-2021 Nurse Surgical operation note Patient to outpatient bay 12, report given to Zach Davidson RN, patient awake alert and oriented x4, Started on PO Fluids, denies pain at this time, Family at bedside, monitors reapplied, vital signs stable, Fire risk level of 1 determined during Time Out. Nonflammable prep in use. Monitored by: room staff OR room temp: 68F OR room humidity: 42% [facility] 12-20-2021 Miscellaneous Notes POST OPERATIVE/PROCEDURE NOTE Sera Vo ([id number]) SURGEON Surgeon(s) and Role: * Catherine Vaca MD - Primary RETREAD BUILDER None ANESTHESIOLOGIST No anesthesia staff entered. SURGICAL STAFF Promotions Coordinator: Monik Rivera RN Plate And Weld Inspector: Sharon Gaxiola PROCEDURE PERFORMED Excision lesion right upper arm (3.5cm) with intermediate closure PRIMARY CLOSURE Yes ANESTHESIA (type of) Local ESTIMATED BLOOD LOSS Minimal DRAINS None BLOOD PRODUCTS None FLUIDS No intake or output data in the 24 hours ending 12/20/21 1116 PRE OPERATIVE DIAGNOSIS Atypical nevus of right upper arm [D22.61] POST OPERATIVE DIAGNOSIS Post-Op Diagnosis Codes: * Atypical nevus of right upper arm [D22.61] FINDINGS pending CONDITION OF PATIENT stable COMPLICATIONS None GRAFTS AND/OR IMPLANTS See OR Nursing Documentation SPECIMENS Microbiology specimen sent ID Type Source Tests Collected by Time Destination A : atypical nevus right upper arm suture for orientation two sutures superior aspect, one suture radial aspect Permanent TISSUE SURGICAL PATHOLOGY REQUEST Catherine Vaca MD 12/20/2021 [id number] Catherine Vaca MD December 20, 2021 11:16 AM documented in this encounter [facility] 12-20-2021 Note Formatting of this n ote is different from the original. POST OPERATIVE/PROCEDURE NOTE Sera Vo ([id number]) SURGEON Surgeon(s) and Role: * Catherine Vaca MD - Primary RETREAD BUILDER None ANESTHESIOLOGIST No anesthesia staff entered. SURGICAL STAFF Promotions Coordinator: Monik Rivera RN Plate And Weld Inspector: Sharon Gaxiola PROCEDURE PERFORMED Excision lesion right upper arm (3.5cm) with intermediate closure PRIMARY CLOSURE Yes ANESTHESIA (type of) Local ESTIMATED BLOOD LOSS Minimal DRAINS None BLOOD PRODUCTS None FLUIDS No intake or output data in the 24 hours ending 12/20/21 1116 PRE OPERATIVE DIAGNOSIS Atypical nevus of right upper arm [D22.61] POST OPERATIVE DIAGNOSIS Post-Op Diagnosis Codes: * Atypical nevus of right upper arm [D22.61] FINDINGS pending CONDITION OF PATIENT stable COMPLICATIONS None GRAFTS AND/OR IMPLANTS See OR Nursing Documentation SPECIMENS Microbiology specimen sent ID Type Source Tests Collected by Time Destination A : atypical nevus right upper arm suture for orientation two sutures superior aspect, one suture radial aspect Permanent TISSUE SURGICAL PATHOLOGY REQUEST Catherine Vaca MD 12/20/2021 [id number] Catherine Vaca MD December 20, 2021 11:16 AM [facility] 12-20-2021 History and physical note I have examined the patient and reviewed the previous H&P completed on date 12/19/21 and there are no changes. See paper H&P in chart Catherine Vaca MD, 12/20/2021, 10:03 AM. [facility] 12-20-2021 History and physical note I have examined the patient and reviewed the previous H&P completed on date 12/19/21 and there are no changes. See paper H&P in chart Catherine Vaca MD, 12/20/2021, 10:03 AM. documented in this encounter [facility] 12-19-2021 History of Present illness Narrative General Plastics Review of Systems: Do you have any of the following: Chills, Fatigue, Fever or Night Sweats: no. Ear pain or eye discharge: no. Hearing loss or visual changes: no. Sore throat or chronic cough: no. Shortness of breath: no. Chest pain, swelling, or heart palpitations: no. Abdominal pain: no. Constipation or diarrhea: no. Heartburn or Nausea: no. Rash or skin problems: no. Dizziness or numbness: no. Headaches or Migraines: no. Seizures: no. Joint pain, joint swelling or muscle weakness: no. Bruise or bleed easily: no. Any swollen lymph nodes: no. Have you used any nicotine products in the last 3 months? no. Do you use any cannabis, THC or marijuana containing products? no. Are you currently taking the medication Adipex? no. Subjective: Sera Vo is an 70 y.o. 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 Coenzyme Q10 (CO Q-10) 400 MG Cap take by mouth daily.. fexofenadine 180 MG tablet take 180 mg by mouth as needed.. fluticasone 50 MCG/ACT Suspension nasal spray 2 sprays by Nasal route daily. 16 g 5 hydroCHLOROthiazide 12.5 MG tablet Take 1 tablet by mouth daily. 90 tablet 2 Lutein 40 MG capsule Take 1 capsule by mouth daily. 30 capsule 11 potassium chloride 10 MEQ Tab CR tablet ER Take 1 tablet by mouth daily. 90 tablet 2 rosuvastatin 20 MG tablet Take 1 tablet by mouth daily. 90 tablet 2 Vitamin D3 1000 units Tab take 1,000 Units by mouth daily.. No current facility-administered medications for this visit. Past Medical History: Diagnosis Date Breast mass Fatigue Glucose intolerance (impaired glucose tolerance) HPV in female Hypercholesteremia Hypertension Sebaceous cyst Past Surgical History: Procedure Laterality Date FOOT SURGERY Left neuroma HYSTERECTOMY ORIF WRIST Left Family History Problem Relation Age of Onset Myocardial Infarction Mother Diabetes Father Social History Socioeconomic History Marital status: Single Spouse name: Not on file Number of children: Not on file Years of education: Not on file Highest education level: Not on file Occupational History Not on file Tobacco Use Smoking status: Never Smoker Smokeless tobacco: Never Used Substance and Sexual Activity Alcohol use: Not on file Drug use: Never Sexual activity: Not on file Other Topics Concern Not on file Social History Narrative Not on file Social Determinants of Health Financial Resource Strain: Not on file Food Insecurity: Not on file Transportation Needs: Not on file Physical Activity: Not on file Stress: Not on file Social Connections: Not on file Intimate Partner Violence: Not on file Housing Stability: Not on file Review of Systems Pertinent items are noted in HPI. General Plastics Review of Systems: Do you have any of the following: Chills, Fatigue, Fever or Night Sweats: no. Ear pain or eye discharge: no. Hearing loss or visual changes: no. Sore throat or chronic cough: no. Shortness of breath: no. Chest pain, swelling, or heart palpitations: no. Abdominal pain: no. Constipation or diarrhea: no. Heartburn or Nausea: no. Rash or skin problems: no. Dizziness or numbness: no. Headaches or Migraines: no. Seizures: no. Joint pain, joint swelling or muscle weakness: no. Bruise or bleed easily: no. Any swollen lymph nodes: no. Have you used any nicotine products in the last 3 months? no. Do you use any cannabis, THC or marijuana containing products? no. Are you currently taking the medication Adipex? no. Objective: BP 121/71 Pulse 82 Temp 97.6 F (36.4 C) (Temporal) Ht 1.651 m (5' 5 ) Wt 101.6 kg (224 lb) BMI 37.28 kg/m Smoking Status Never Smoker General: alert, cooperative, no distress, appears stated age Skin: Evidence of recent biopsy of a lesion of the right arm Eyes: conjunctivae/corneas clear. PERRL, EOM's intact. Mouth: no lesions Lymph Nodes: Cervical, supraclavicular, and axillary nodes normal. Lungs: clear to auscultation bilaterally Heart: regular rate and rhythm, S1, S2 normal, no murmur Abdomen: soft, non-tender. No masses, no organomegaly Extremities: extremities normal, atraumatic, mild LE edema Neurologic: negative Psychiatric: non focal. Judgement and Affect WNL. Assessment: Lesion of right upper arm identified as an abnormal nevus Plan: The procedure for excision / biopsy was reviewed with the patient. They are aware that this will be done in a procedure room at the hospital. Alternatives and risks were also reviewed. (these include but are not exclusive of scar tissue, tenderness, and potential need for further surgery.) The specimen will be evaluated by pathology. The patient is aware of the potential need for further surgery depending on the results. We will SCHEDULE THE PROCEDURE in the near future. SURGERY TO BE SCHEDULED FOLLOWS: ANESTHESIA: local PROCEDURE: 1. Excision atypical nevus right upper arm documented in this encounter [facility] 10-09-2021 Instructions Elizabet Duke MD - 10/09/2021 10:03 AM EDT Hypertension. Well controlled. Recheck 6 months. Continue on hydrochlorothiazide 12.5 mg one pill a day. Continue on low salt diet. No more than a teaspoon or 2500 mg of salt a day. Exercise 150 minutes a week with walking , bicycling or swimming. If have chest pain or shortness of breath, go to er. 2. Trigger point pain in back. Recommend message, hot packs up to 3 to 4 times a day and chiropactor manipulation. If continues, can inject steriods documented in this encounter [facility] 10-09-2021 History of Present illness Narrative Nurse Note: Review of Systems Constitutional: Negative for chills, fatigue and fever. HENT: Positive for postnasal drip and sneezing. Negative for congestion, ear pain, nosebleeds, sinus pressure, sinus pain and sore throat. Eyes: Positive for discharge. Negative for pain, redness and itching. Respiratory: Negative for cough, chest tightness, shortness of breath and wheezing. Cardiovascular: Positive for leg swelling. Negative for chest pain and palpitations. Gastrointestinal: Negative for abdominal pain, constipation, diarrhea, nausea and vomiting. Genitourinary: Negative for dysuria, frequency, hematuria and urgency. Musculoskeletal: Positive for back pain. Negative for neck pain. Skin: Negative for rash. Allergic/Immunologic: Positive for environmental allergies. Neurological: Negative for dizziness, light-headedness and headaches. Psychiatric/Behavioral: Negative for agitation and sleep disturbance. The patient is not nervous/anxious. Physical Exam History of Present Illness 70 year old white female with past medical history of hypercholesteremia , hypertension, glucose intolerance, and obesity presenting with recheck of hypertension and back pain Hypertension She presents for follow-up of hypertension. HTN has been present for approximately 12 years and has been treated since approximately 12 years with diet. She indicates that she is feeling well and denies any symptoms referable to her elevated blood pressure. Specifically denies chest pain, shortness of breath, nausea, vomiting, lightheadness, headache, Tremors, constipation, diarrhea, orthopnea, leg swelling, dysphagia, appetitie loss, dyspnea on exertion, loss of vision, or focal weakness. Current medication regimen is as listed in this record. She is currently experiencing the following side effects from her medication: has dry mouth Has occasional right ankle swelling Hydrochlorothiazide 12.5 mg a day Blood pressure readings taken since the last visit are: 130's over 80 Use of agenTs associated with hypertension: none. History of renal disease: no. Back pain: Has upper back pain for last 2 to 3 months. Patient stated tripped over spout in august 2021 and fell forward on hands and chest. Patient stated was very sore and tender at that time. Had bruising on chest and scraps on hands. Patient had no fracture. Did not hit head or neck. Patient has noted upper back pain has improved. Pain level can increase to 8 out of 10. Improves with heat. Has not had message or chairopactor treatment. Denies any muscle spams. Pain is intermittent described as tightness or achiness. Patient unsure what worsens pain. Patient denies numbness or tingling in hands or feet, or bowel incontinece. Has urine incontinence with urgency unchanged for years. 09/11/21: x-ray thoracic spine: negative 06/09/21: normal kidney function and sodium, potassium and chloride Review of Systems Constitutional: Negative for activity change, appetite change, chills, diaphoresis, fatigue, fever and unexpected weight change. HENT: Positive for postnasal drip and sneezing. Negative for congestion, ear discharge, ear pain, facial swelling, mouth sores, rhinorrhea, sinus pressure, sinus pain, sore throat, tinnitus, trouble swallowing and voice change. Eyes: Positive for discharge. Negative for redness and itching. Respiratory: Negative for apnea, cough, choking, chest tightness, shortness of breath, wheezing and stridor. Cardiovascular: Positive for leg swelling. Negative for chest pain and palpitations. Gastrointestinal: Negative for abdominal distention, abdominal pain, anal bleeding, blood in stool, constipation, diarrhea, nausea, rectal pain and vomiting. Endocrine: Negative for cold intolerance, heat intolerance, polydipsia, polyphagia and polyuria. Genitourinary: Negative for difficulty urinating, dysuria, enuresis, frequency and urgency. Musculoskeletal: Positive for back pain. Negative for arthralgias and myalgias. Skin: Negative for rash. Allergic/Immunologic: Positive for environmental allergies. Negative for food allergies. Neurological: Negative for dizziness, tremors, seizures, syncope, facial asymmetry, speech difficulty, weakness, light-headedness, numbness and headaches. Hematological: Negative for adenopathy. Psychiatric/Behavioral: Negative for confusion and dysphoric mood. Vitals: Blood pressure 138/84, pulse 84, temperature 96.7 F (35.9 C), temperature source Temporal, resp. rate 20, height 1.651 m (5' 5 ), weight 103.3 kg (227 lb 12.8 oz), SpO2 97 %, not currently . Physical Exam Constitutional: General: She is not in acute distress. Appearance: Normal appearance. She is not ill-appearing, toxic-appearing or diaphoretic. HENT: Head: Normocephalic and atraumatic. Right Ear: Tympanic membrane, ear canal and external ear normal. There is no impacted cerumen. Left Ear: Tympanic membrane, ear canal and external ear normal. There is no impacted cerumen. Nose: Congestion present. No rhinorrhea. Mouth/Throat: Mouth: Mucous membranes are moist. Pharynx: Oropharynx is clear. No oropharyngeal exudate or posterior oropharyngeal erythema. Eyes: General: No scleral icterus. Right eye: No discharge. Left eye: No discharge. Extraocular Movements: Extraocular movements intact. Conjunctiva/sclera: Conjunctivae normal. Pupils: Pupils are equal, round, and reactive to light. Neck: Thyroid: No thyromegaly. Vascular: No carotid bruit or JVD. Trachea: No tracheal deviation. Cardiovascular: Rate and Rhythm: Normal rate and regular rhythm. Pulses: Normal pulses. Heart sounds: Normal heart sounds. No murmur heard. No friction rub. No gallop. Comments: No jvd, bruit or pedal edema Pulmonary: Effort: Pulmonary effort is normal. No respiratory distress. Breath sounds: Normal breath sounds. No stridor. No wheezing, rhonchi or rales. Chest: Chest wall: No tenderness. Abdominal: General: Abdomen is flat. Bowel sounds are normal. There is no distension. Palpations: Abdomen is soft. There is no mass. Tenderness: There is no abdominal tenderness. There is no right CVA tenderness, left CVA tenderness, guarding or rebound. Hernia: No hernia is present. Musculoskeletal: Cervical back: Normal range of motion and neck supple. No rigidity or tenderness. No muscular tenderness. Lumbar back: Negative right straight leg raise test and negative left straight leg raise test. Right lower leg: No edema (mild varicose veins). Left lower leg: No edema (mild varicose vein). Lymphadenopathy: Head: Right side of head: No submental, submandibular, tonsillar, preauricular, posterior auricular or occipital adenopathy. Left side of head: No submental, submandibular, tonsillar, preauricular, posterior auricular or occipital adenopathy. Cervical: No cervical adenopathy. Neurological: General: No focal deficit present. Mental Status: She is alert and oriented to person, place, and time. Psychiatric: Mood and Affect: Mood normal. Behavior: Behavior normal. Thought Content: Thought content normal. Judgment: Judgment normal. Neurological Exam Mental Status Alert. Oriented to person, place, and time. Cranial Nerves CN III, IV, : Extraocular movements intact bilaterally. Pupils equal round and reactive to light bilaterally. Back Exam Tenderness The patient is experiencing tenderness in the thoracic (pin point tenderness with muscle spams at side of medical scapula bilaterally). Range of Motion The patient has normal back ROM. Lateral bend right: normal Lateral bend left: normal Rotation right: normal Rotation left: normal Muscle Strength The patient has normal back strength. Tests Straight leg raise right: negative Straight leg raise left: negative Reflexes Patellar: normal Achilles: normal Biceps: normal Other Toe walk: normal Heel walk: normal Sensation: normal Gait: normal Assessment and Plan 1. Hypertension. Well controlled. Recheck 6 months. Continue on hydrochlorothiazide 12.5 mg one pill a day. Continue on low salt diet. No more than a teaspoon or 2500 mg of salt a day. Exercise 150 minutes a week with walking , bicycling or swimming. If have chest pain or shortness of breath, go to er. 2. Trigger point pain in back. Recommend message, hot packs up to 3 to 4 times a day and chiropactor manipulation. If continues, can inject steriods documented in this encounter [facility] 05-27-2021 History of Present illness Narrative Images from the original note were not included. Patient Name: [facility] Location: [facility] [address] [facility] [id number] Date Of : Date Of Visit: 1950 05/27/2021 MRN# Provider: [id number] Kiran Puentes CNP Chief Complaint Patient presents with Cough 2 weeks. Productive cough, runny nose, headache. OTC meds haven't helped. Assessment & Plan 1. Sinus congestion CANCELED: COVID-19, Molecular 2. Respiratory infection azithromycin (Zithromax Z-Joe) 250 MG tablet methylPREDNISolone (MEDROL DOSEPACK) 4 mg tablet No follow-ups on file. Medical Decision Making Considered Covid, URI, bronchitis, pneumonia Additional Clinical Comments Discussed over the counter medications for symptomatic management and side effects of medications. Recommended taking all medications with food and to stop medications if they develop any signs of an allergic reaction. Subjective 70 y.o. female presents with Cough (2 weeks. Productive cough, runny nose, headache. OTC meds haven't helped.) HPI 70 yr old female presents with c/o cough for 2 weeks. She states that the cough is productive of yellow sputum. She has associated headache, clear runny nose, sore throat. She denies fever, ear pain, N/V/D. She has had vaccination for Covid. She denies known exposure to Covid positive persons. She had a negative home Covid test on 05/18/2021. Mucinex has been ineffective. Review Of Systems Review of Systems Constitutional: Negative for activity change, appetite change, chills, fatigue and fever. HENT: Positive for rhinorrhea and sore throat. Negative for congestion, ear pain, hearing loss and sinus pressure. Eyes: Negative for photophobia, pain, discharge and visual disturbance. Respiratory: Positive for cough. Negative for chest tightness and shortness of breath. Cardiovascular: Negative for chest pain. Gastrointestinal: Negative for abdominal distention, abdominal pain, constipation, diarrhea, nausea and vomiting. Genitourinary: Negative for dysuria, frequency and hematuria. Musculoskeletal: Negative for arthralgias and joint swelling. Neurological: Positive for headaches. Negative for dizziness and weakness. Psychiatric/Behavioral: Negative for agitation and confusion. Medical History History reviewed. No pertinent past medical history. Past Surgical History: Procedure Laterality Date ANKLE FRACTURE SURGERY Right x3 ANKLE FRACTURE SURGERY Left HYSTERECTOMY WRIST SURGERY Left Patient Active Problem List Diagnosis Closed nondisplaced fracture of fifth metatarsal bone of left foot Social History Social History Tobacco Use Smoking status: Never Smoker Smokeless tobacco: Never Used Family History History reviewed. No pertinent family history. Objective Physical Exam BP 122/80 Pulse 98 Temp 98 F (36.7 C) (Tympanic) Resp 16 SpO2 97% Vision/Hearing Exam:No exam data present Physical Exam Vitals and nursing note reviewed. Constitutional: Appearance: Normal appearance. She is well-developed and well-nourished. HENT: Head: Normocephalic. Right Ear: No middle ear effusion. Tympanic membrane is not injected, scarred, perforated, erythematous, retracted or bulging. Left Ear: No middle ear effusion. Tympanic membrane is not injected, scarred, perforated, erythematous, retracted or bulging. Nose: Mucosal edema and rhinorrhea present. Right Turbinates: Not enlarged, swollen or pale. Left Turbinates: Not enlarged, swollen or pale. Right Sinus: No maxillary sinus tenderness or frontal sinus tenderness. Left Sinus: No maxillary sinus tenderness or frontal sinus tenderness. Mouth/Throat: Lips: [place]. Mouth: Mucous membranes are moist. Pharynx: No pharyngeal swelling, oropharyngeal exudate, posterior oropharyngeal erythema or uvula swelling. Tonsils: No tonsillar exudate or tonsillar abscesses. Eyes: Conjunctiva/sclera: Conjunctivae normal. Right eye: Right conjunctiva is not injected. Left eye: Left conjunctiva is not injected. Cardiovascular: Rate and Rhythm: Normal rate and regular rhythm. Heart sounds: S1 normal and S2 normal. Pulmonary: Effort: No accessory muscle usage or respiratory distress. Breath sounds: Normal breath sounds. Musculoskeletal: Cervical back: Normal range of motion. Skin: General: Skin is warm, dry and intact. Neurological: Mental Status: She is alert and oriented to person, place, and time. Psychiatric: Mood and Affect: Mood and affect normal. Speech: Speech normal. Thought Content: Thought content normal. Procedure Notes Procedures Results No results found for this or any previous visit (from the past 168 hour(s)). No orders to display Orders Placed This Visit No orders of the defined types were placed in this encounter. Medication List At End Of Visit Current Outpatient Medications Medication Sig Dispense Refill hydroCHLOROthiazide (HYDRODIURIL) 12.5 MG tablet Take 1 tablet by mouth daily . rosuvastatin (CRESTOR) 20 MG tablet TAKE 1 TABLET BY MOUTH EVERY DAY azithromycin (Zithromax Z-Joe) 250 MG tablet Take 1 (one) tablet (250 mg total) by mouth daily for 5 days . 5 tablet 0 calcium carbonate-vitamin D2 500 mg(1,250mg) -200 unit tablet Take 1 tablet by mouth 2 (two) times a day. co-enzyme Q-10 30 mg capsule Take 30 mg by mouth 3 (three) times a day. coenzyme Q10 400 mg cap Take by mouth daily . methylPREDNISolone (MEDROL DOSEPACK) 4 mg tablet Follow package directions . 21 tablet 0 potassium chloride 10 MEQ CR tablet Take 1 tablet by mouth daily . predniSONE (DELTASONE) 20 MG tablet 60mg x 3 days, then 40mg x 3 days, then 20mg x 3 days, then 10mg for 4 days. . (Patient not taking: Reported on 05/27/2021 .) 20 tablet 0 triamcinolone (KENALOG) 0.5 % cream Apply topically 2 (two) times a day . (Patient not taking: Reported on 05/27/2021 .) 30 g 0 vitamin E 1,000 unit cap Take 1,000 Units by mouth daily. No current facility-administered medications for this visit. There are no Patient Instructions on file for this visit. documented in this encounter [facility] 02-14-2021 History of Present illness Narrative History of Present Illness Rash Sera Vo is a 70 y.o. female who comes in with a complaint of a rash. Rash has been present for 1 days. Rash is red patches neck, Eyelid appears to be itchy. Location of rash is Neck and eyelids. Fever: no Sore Throat: no Diarrhea: no History of eczema/dry skin: no Significant exposures: yes to poison Umm New soaps/detergents/lotions: no Recent new medication use: no Therapy tried so far includes: Mandy dish soap and Cortisone cream Review of Systems Constitutional: Negative for chills, fatigue and fever. HENT: Positive for postnasal drip, rhinorrhea and sneezing (environmental allergies). Negative for congestion, ear pain, nosebleeds, sinus pressure, sinus pain and sore throat. Eyes: Positive for discharge, redness and itching around eye d/t current rash (not eye itself). Negative for pain. Respiratory: Negative for cough, chest tightness, shortness of breath and wheezing. Cardiovascular: Negative for chest pain, palpitations and leg swelling. Gastrointestinal: Negative for abdominal pain, blood in stool, constipation, diarrhea, nausea and vomiting. Genitourinary: Negative for dysuria, frequency, hematuria and urgency. Musculoskeletal: Negative for back pain, joint swelling, myalgias and neck pain. Skin: Positive for rash. Healing wound from dog bite. Allergic/Immunologic: Positive for environmental allergies (and seasonal allergies). Neurological: Negative for dizziness and headaches. Psychiatric/Behavioral: Negative for agitation and sleep disturbance. The patient is not nervous/anxious. Physical Exam Skin: Findings: Erythema, lesion and rash (vesicular, linear and some patches on pink base with clear fluid present. no drainage/seeping. no s/sx of infection. present surrounding right eye and to neck) present. Constitutional: General: She is not in acute distress. Appearance: Normal appearance. She is not ill-appearing, toxic-appearing or diaphoretic. HENT: Head: Normocephalic and atraumatic. Eyes: General: No scleral icterus. Right eye: No discharge. Left eye: No discharge. Conjunctiva/sclera: Conjunctivae normal. Cardiovascular: Rate and Rhythm: Normal rate and regular rhythm. Pulses: Normal pulses. Heart sounds: Normal heart sounds. No murmur heard. No friction rub. No gallop. Pulmonary: Effort: Pulmonary effort is normal. No respiratory distress. Breath sounds: Normal breath sounds. No stridor. No wheezing, rhonchi or rales. Lymphadenopathy: Head: Right side of head: No submental, submandibular, tonsillar, preauricular, posterior auricular or occipital adenopathy. Left side of head: No submental, submandibular, tonsillar, preauricular, posterior auricular or occipital adenopathy. Cervical: No cervical adenopathy. Neurological: Mental Status: She is alert and oriented to person, place, and time. Psychiatric: Mood and Affect: Mood normal. Behavior: Behavior normal. Assessment and Plan Poison Umm: evidence of contact derm from poison umm. given kenalog injection in office today and pt tolerated well. will rx for medrol dose joe for pt to start taking if rash worsen/persists after injection (advise to give 24-48 hours for injection to clear). encouraged on methods to help with clearance and prevention of spread including avoidance of itching and topical calamine lotion to help dry areas up. will f/u as needed. to call/return if s/sx worsen, progress or no resolution with tx. documented in this encounter [facility] 02-14-2021 Instructions NAGI Mcdonnell - 02/14/2021 1:00 PM EDT Poison Umm: evidence of contact derm from poison umm. given kenalog injection in office today and pt tolerated well. will rx for medrol dose joe for pt to start taking if rash worsen/persists after injection (advise to give 24-48 hours for injection to clear). encouraged on methods to help with clearance and prevention of spread including avoidance of itching and topical calamine lotion to help dry areas up. will f/u as needed. to call/return if s/sx worsen, progress or no resolution with tx. documented in this encounter [facility] 01-13-2021 Debora Mercado CNP - 01/13/2021 11:04 AM EDT Images from the original note were not included. PLAN: 1. Take prednisone daily in the morning. Take with food. 2. Use triamcinolone cream twice a day for 10 days. 3. Use a cream such as calamine or zanfel to decrease itching. 4. Try not to scratch the area as much as possible. 5. Use benedryl as needed to help with itch. 6. If symptoms continue, please follow-up with your PCP in 7-10 days. Poison [place], [place], and [place]: Care Instructions Your Care Instructions Poison umm, poison oak, and poison sumac are plants that can cause a skin rash upon contact. The red, itchy rash often shows up in lines or streaks and may cause fluid-filled blisters or large, raised hives. The rash is caused by an allergic reaction to an oil in poison umm, oak, and sumac. The rash may occur when you touch the plant or when you touch clothing, pet fur, sporting gear, gardening tools, or other objects that have come in contact with one of these plants. You cannot catch or spread the rash, even if you touch it or the blister fluid, because the plant oil will already have been absorbed or washed off the skin. The rash may seem to be spreading, but either it is still developing from earlier contact or you have touched something that still has the plant oil on it. Follow-up care is a jacobs part of your treatment and safety. Be sure to make and go to all appointments, and call your doctor if you are having problems. It's also a good idea to know your test results and keep a list of the medicines you take. How can you care for yourself at home? If your doctor prescribed a cream, use it as directed. If your doctor prescribed medicine, take it exactly as prescribed. Call your doctor if you think you are having a problem with your medicine. Use cold, wet cloths to reduce itching. Keep cool, and stay out of the sun. Leave the rash open to the air. Wash all clothing or other things that may have come in contact with the plant oil. Avoid most lotions and ointments until the rash heals. Calamine lotion may help relieve symptoms of a plant rash. Use it 3 or 4 times a day. To prevent poison umm exposure If you know that you will be near poison umm, oak, or sumac, you can try these options: Use a product designed to help prevent plant oil from getting on the skin. These products, such as Umm X Pre-Contact Skin Solution, come in lotions, sprays, or towelettes. You put the product on your skin right before you go outdoors. If you did not use a preventive product and you have had contact with plant oil, clean it off your skin as soon as possible. Use a product such as [employer] Original Outdoor Skin Cleanser. These products can also be used to clean plant oil from clothing or tools. When should you call for help? Call your doctor now or seek immediate medical care if: Your rash gets worse, and you start to feel bad and have a fever, a stiff neck, nausea, and vomiting. You have signs of infection, such as: ? Increased pain, swelling, warmth, or redness. ? Red streaks leading from the rash. ? Pus draining from the rash. ? A fever. Watch closely for changes in your health, and be sure to contact your doctor if: You have new blisters or bruises, or the rash spreads and looks like a sunburn. The rash gets worse, or it comes back after nearly disappearing. You think a medicine you are using is making your rash worse. Your rash does not clear up after 1 to 2 weeks of home treatment. You have joint aches or body aches with your rash. Where can you learn more? Log into your personal health record on?[email or web address]://[email or web address] ?and enter?W882?in the Education box to learn more about Poison Umm, [place], and [place]: Care Instructions. Current as of: August 23, 2020 Content Version: 12.9 [employer]. Care instructions adapted under license by your healthcare professional. If you have questions about a medical condition or this instruction, always ask your healthcare professional. [employer] disclaims any warranty or liability for your use of this information. documented in this encounter [facility] 01-13-2021 History of Present illness Narrative Images from the original note were not included. Patient Name: [facility] Location: [facility] [place] [id number] [facility] [id number] Date Of : Date Of Visit: 1950 01/13/2021 MRN# Provider: [id number] Debora Rabago CNP Chief Complaint Patient presents with Rash rash x 5 days Assessment & Plan 1. Poison umm dermatitis predniSONE (DELTASONE) 20 MG tablet triamcinolone (KENALOG) 0.5 % cream Return if symptoms worsen or fail to improve. Medical Decision Making With the patient's HPI and PE, as well as the appearance of the rash to the right forearm, this is consistent with contact dermatitis associated with poison umm. The area was on 2 different locations of her body, indicating that this is not shingles. She did not allow me to visualize the rash in her groin, which may also be beto, cellulitis, impetigo, or friction rub. The patient was e-scribed a taper of prednisone as well as trimacinolone cream. She was also encouraged to continue using benedryl and calamine lotion as needed to help with itching. She was also advised that if her symptoms are worsening on a yearly basis, it may be beneficial to go to a activity aid for further testing and treatments. She verbalized understanding and agreed with this plan. Possible differential includes: Viral rash. Poison umm dermtitis. Shingles. Friction rash. Cellulitis. Beto infection. Additional Clinical Comments Discussed over the counter medications for symptomatic management and side effects of medications. Recommended taking all medications with food and to stop medications if they develop any signs of an allergic reaction. Educated patient and/or guardian about signs and symptoms that would warrant further immediate evaluation. Recommended that they should return to urgent care, make an appointment with their family physician, or go to the emergency room if symptoms persist or get acutely worse. Recommended follow up within the next week with their PCP or to get established with a PCP soon in order to follow up appropriately. Subjective 70 y.o. female presents with Rash (rash x 5 days) HPI 70-year-old female presents to the urgent care with complaints of a rash to her right arm and right groin area. She has been working hard in her garden weeding, she knows that her neighbors have a lot of poison umm in their yard but she did not see it in her yard. She reports that she is very allergic to it and gets it several times a year. She has been using Mandy dish soap to her arm but nothing seems to help. She denies any other symptoms related to this rash. She states that the rash to her right groin area is draining a clear yellowish substance. Review Of Systems Review of Systems Skin: Positive for rash. Medical History History reviewed. No pertinent past medical history. Past Surgical History: Procedure Laterality Date ANKLE FRACTURE SURGERY Right x3 ANKLE FRACTURE SURGERY Left HYSTERECTOMY WRIST SURGERY Left Patient Active Problem List Diagnosis Closed nondisplaced fracture of fifth metatarsal bone of left foot Social History Social History Tobacco Use Smoking status: Never Smoker Smokeless tobacco: Never Used Vaping Use Vaping Use: Never assessed Substance Use Topics Alcohol use: Not on file Drug use: Not on file Family History History reviewed. No pertinent family history. Objective Physical Exam BP 115/82 (BP Location: Left arm, Patient Position: Sitting, BP Cuff Size: Adult) Pulse 81 Temp 98.7 F (37.1 C) (Temporal) Resp 18 Ht 5' 5 Wt 104.3 kg (230 lb) SpO2 96% BMI 38.27 kg/m Vision/Hearing Exam:No exam data present Physical Exam Vitals reviewed. Constitutional: General: She is awake. She is not in acute distress. Appearance: Normal appearance. She is well-developed and normal weight. She is not ill-appearing, toxic-appearing or diaphoretic. HENT: Head: Normocephalic and atraumatic. Right Ear: External ear normal. Left Ear: External ear normal. Nose: Nose normal. Eyes: Conjunctiva/sclera: Conjunctivae normal. Pupils: Pupils are equal, round, and reactive to light. Cardiovascular: Rate and Rhythm: Normal rate and regular rhythm. Pulmonary: Effort: Pulmonary effort is normal. No accessory muscle usage or respiratory distress. Breath sounds: Normal breath sounds. Musculoskeletal: Cervical back: Normal range of motion. Skin: General: Skin is warm. Findings: Erythema and rash present. Comments: Flat macular area to the ulnar side of the right forearm. Patient did not allow me to visualize or assess the right groin but states that it is worse and more blistered. Neurological: Mental Status: She is alert and oriented to person, place, and time. Mental status is at baseline. Psychiatric: Behavior: Behavior normal. Behavior is cooperative. Thought Content: Thought content normal. Judgment: Judgment normal. Procedure Notes Procedures Results No results found for this or any previous visit (from the past 168 hour(s)). No orders to display Orders Placed This Visit No orders of the defined types were placed in this encounter. Medication List At End Of Visit Current Outpatient Medications Medication Sig Dispense Refill calcium carbonate-vitamin D2 500 mg(1,250mg) -200 unit tablet Take 1 tablet by mouth 2 (two) times a day. coenzyme Q10 400 mg cap Take by mouth daily . rosuvastatin (CRESTOR) 20 MG tablet TAKE 1 TABLET BY MOUTH EVERY DAY vitamin E 1,000 unit cap Take 1,000 Units by mouth daily. co-enzyme Q-10 30 mg capsule Take 30 mg by mouth 3 (three) times a day. predniSONE (DELTASONE) 20 MG tablet 60mg x 3 days, then 40mg x 3 days, then 20mg x 3 days, then 10mg for 4 days. . 20 tablet 0 triamcinolone (KENALOG) 0.5 % cream Apply topically 2 (two) times a day . 30 g 0 No current facility-administered medications for this visit. Patient Instructions PLAN: 1. Take prednisone daily in the morning. Take with food. 2. Use triamcinolone cream twice a day for 10 days. 3. Use a cream such as calamine or zanfel to decrease itching. 4. Try not to scratch the area as much as possible. 5. Use benedryl as needed to help with itch. 6. If symptoms continue, please follow-up with your PCP in 7-10 days. Poison [place], [place], and [place]: Care Instructions Your Care Instructions Poison umm, poison oak, and poison sumac are plants that can cause a skin rash upon contact. The red, itchy rash often shows up in lines or streaks and may cause fluid-filled blisters or large, raised hives. The rash is caused by an allergic reaction to an oil in poison umm, oak, and sumac. The rash may occur when you touch the plant or when you touch clothing, pet fur, sporting gear, gardening tools, or other objects that have come in contact with one of these plants. You cannot catch or spread the rash, even if you touch it or the blister fluid, because the plant oil will already have been absorbed or washed off the skin. The rash may seem to be spreading, but either it is still developing from earlier contact or you have touched something that still has the plant oil on it. Follow-up care is a jacobs part of your treatment and safety. Be sure to make and go to all appointments, and call your doctor if you are having problems. It's also a good idea to know your test results and keep a list of the medicines you take. How can you care for yourself at home? If your doctor prescribed a cream, use it as directed. If your doctor prescribed medicine, take it exactly as prescribed. Call your doctor if you think you are having a problem with your medicine. Use cold, wet cloths to reduce itching. Keep cool, and stay out of the sun. Leave the rash open to the air. Wash all clothing or other things that may have come in contact with the plant oil. Avoid most lotions and ointments until the rash heals. Calamine lotion may help relieve symptoms of a plant rash. Use it 3 or 4 times a day. To prevent poison umm exposure If you know that you will be near poison umm, oak, or sumac, you can try these options: Use a product designed to help prevent plant oil from getting on the skin. These products, such as Umm X Pre-Contact Skin Solution, come in lotions, sprays, or towelettes. You put the product on your skin right before you go outdoors. If you did not use a preventive product and you have had contact with plant oil, clean it off your skin as soon as possible. Use a product such as [employer] Original Outdoor Skin Cleanser. These products can also be used to clean plant oil from clothing or tools. When should you call for help? Call your doctor now or seek immediate medical care if: Your rash gets worse, and you start to feel bad and have a fever, a stiff neck, nausea, and vomiting. You have signs of infection, such as: ? Increased pain, swelling, warmth, or redness. ? Red streaks leading from the rash. ? Pus draining from the rash. ? A fever. Watch closely for changes in your health, and be sure to contact your doctor if: You have new blisters or bruises, or the rash spreads and looks like a sunburn. The rash gets worse, or it comes back after nearly disappearing. You think a medicine you are using is making your rash worse. Your rash does not clear up after 1 to 2 weeks of home treatment. You have joint aches or body aches with your rash. Where can you learn more? Log into your personal health record on?https://Cogot.[employer] ?and enter?W882?in the Education box to learn more about [place], [place], and [place]: Care Instructions. Current as of: August 23, 2020 Content Version: 12.9 [employer]. Care instructions adapted under license by your healthcare professional. If you have questions about a medical condition or this instruction, always ask your healthcare professional. [employer] disclaims any warranty or liability for your use of this information. documented in this encounter [facility] 12-05-2020 Instructions Sher Stroud CNP - 12/05/2020 6:58 PM EDT Images from the original note were not included. Try to see your doctor by Friday for re-check. If you develop fever/chills, flu-like symptoms, you should get checked at the ER. Take Tylenol and or Motrin as needed. Stay hydrated. If symptoms worsen, you may return here if needed. Cellulitis: Care Instructions Your Care Instructions Cellulitis is a skin infection caused by bacteria, most often strep or staph. It often occurs after a break in the skin from a scrape, cut, bite, or puncture, or after a rash. Cellulitis may be treated without doing tests to find out what caused it. But your doctor may do tests, if needed, to look for a specific bacteria, like methicillin-resistant Staphylococcus aureus (MRSA). The doctor has checked you carefully, but problems can develop later. If you notice any problems or new symptoms, get medical treatment right away. Follow-up care is a jacobs part of your treatment and safety. Be sure to make and go to all appointments, and call your doctor if you are having problems. It's also a good idea to know your test results and keep a list of the medicines you take. How can you care for yourself at home? Take your antibiotics as directed. Do not stop taking them just because you feel better. You need to take the full course of antibiotics. Prop up the infected area on pillows to reduce pain and swelling. Try to keep the area above the level of your heart as often as you can. If your doctor told you how to care for your wound, follow your doctor's instructions. If you did not get instructions, follow this general advice: ? Wash the wound with clean water 2 times a day. Don't use hydrogen peroxide or alcohol, which can slow healing. ? You may cover the wound with a thin layer of petroleum jelly, such as Vaseline, and a nonstick bandage. ? Apply more petroleum jelly and replace the bandage as needed. Be safe with medicines. Take pain medicines exactly as directed. ? If the doctor gave you a prescription medicine for pain, take it as prescribed. ? If you are not taking a prescription pain medicine, ask your doctor if you can take an vndh-mjb-uqbqebt medicine. To prevent cellulitis in the future Try to prevent cuts, scrapes, or other injuries to your skin. Cellulitis most often occurs where there is a break in the skin. If you get a scrape, cut, mild burn, or bite, wash the wound with clean water as soon as you can to help avoid infection. Don't use hydrogen peroxide or alcohol, which can slow healing. If you have swelling in your legs (edema), support stockings and good skin care may help prevent leg sores and cellulitis. Take care of your feet, especially if you have diabetes or other conditions that increase the risk of infection. Wear shoes and socks. Do not go barefoot. If you have athlete's foot or other skin problems on your feet, talk to your doctor about how to treat them. When should you call for help? Call your doctor now or seek immediate medical care if: You have signs that your infection is getting worse, such as: ? Increased pain, swelling, warmth, or redness. ? Red streaks leading from the area. ? Pus draining from the area. ? A fever. You get a rash. Watch closely for changes in your health, and be sure to contact your doctor if: You do not get better as expected. Where can you learn more? Log into your personal health record on [email or web address] and enter X309 in the Education box to learn more about Cellulitis: Care Instructions. Current as of: December 23, 2019 Content Version: 12.8 [employer]. Care instructions adapted under license by your healthcare professional. If you have questions about a medical condition or this instruction, always ask your healthcare professional. [employer] disclaims any warranty or liability for your use of this information. documented in this encounter [facility] 12-05-2020 History of Present illness Narrative Images from the original note were not included. Patient Name: [facility] [address] [facility] [id number] Date Of : Date Of Visit: 1950 12/05/2020 MRN# Provider: [id number] Sher Stroud CNP Chief Complaint Patient presents with Erythema Lt lower leg redness, pain, and warm to the touch that is getting worse. Pt finished prescribed antibiotics last Friday. Assessment & Plan 1. Cellulitis of left lower extremity sulfamethoxazole-trimethoprim (BACTRIM DS,SEPTRA DS) 800-160 mg per tablet No follow-ups on file. Medical Decision Making Patient with worsening cellulitis. Finished Augmentin on Friday had been looking better however the past 2 days the redness has gotten worse. There are 2 scabbed areas from what she states was a dog bite. I do not feel any abscess under the wound. The wound is not draining or open so there is no culture obtained. I will place the Patient on bactrim and advised her to monitor the site for worsening infection. Additional Clinical Comments Discussed over the counter medications for symptomatic management and side effects of medications. Recommended taking all medications with food and to stop medications if they develop any signs of an allergic reaction. Educated patient and/or guardian about signs and symptoms that would warrant further immediate evaluation. Recommended that they should return to urgent care, make an appointment with their family physician, or go to the emergency room if symptoms persist or get acutely worse. Recommended follow up within the next week with their PCP or to get established with a PCP soon in order to follow up appropriately. Subjective 69 y.o. female presents with Erythema (Lt lower leg redness, pain, and warm to the touch that is getting worse. Pt finished prescribed antibiotics last Friday.) Wound Check She was originally treated 10 to 14 days ago. Previous treatment included oral antibiotics. The maximum temperature noted was less than 100.4 F. There has been no drainage from the wound. There is new redness (small amount of redness noted approx 4-5 cm from wound outward in a circular fashion) present. There is new swelling (mild lower leg/ankle swelling, non-pitting) present. The pain has improved. She has no difficulty moving the affected extremity or digit. Review Of Systems Review of Systems Constitutional: Negative for chills and fever. Skin: Positive for wound. Medical History History reviewed. No pertinent past medical history. Past Surgical History: Procedure Laterality Date ANKLE FRACTURE SURGERY Right x3 ANKLE FRACTURE SURGERY Left HYSTERECTOMY WRIST SURGERY Left Patient Active Problem List Diagnosis Closed nondisplaced fracture of fifth metatarsal bone of left foot Social History Social History Tobacco Use Smoking status: Never Smoker Smokeless tobacco: Never Used Substance Use Topics Alcohol use: Not on file Drug use: Not on file Family History History reviewed. No pertinent family history. Objective Physical Exam BP 123/86 Pulse 87 Temp 97.5 F (36.4 C) (Tympanic) Resp 16 Wt 107.5 kg (237 lb) SpO2 96% BMI 39.44 kg/m Vision/Hearing Exam:No exam data present Physical Exam Vitals and nursing note reviewed. Constitutional: General: She is not in acute distress. Appearance: She is well-developed. She is not diaphoretic. HENT: Head: Normocephalic and atraumatic. Pulmonary: Effort: Pulmonary effort is normal. No respiratory distress. Abdominal: General: There is no distension. Musculoskeletal: General: Swelling (left lower extremity ) present. Normal range of motion. Cervical back: Normal range of motion and neck supple. Skin: General: Skin is warm and dry. Capillary Refill: Capillary refill takes less than 2 seconds. Findings: Erythema present. No rash. Neurological: General: No focal deficit present. Mental Status: She is alert. Psychiatric: Behavior: Behavior normal. Thought Content: Thought content normal. Judgment: Judgment normal. Procedure Notes Procedures Results No results found for this or any previous visit (from the past 168 hour(s)). No orders to display Orders Placed This Visit No orders of the defined types were placed in this encounter. Medication List At End Of Visit Current Outpatient Medications Medication Sig Dispense Refill calcium carbonate-vitamin D2 500 mg(1,250mg) -200 unit tablet Take 1 tablet by mouth 2 (two) times a day. co-enzyme Q-10 30 mg capsule Take 30 mg by mouth 3 (three) times a day. rosuvastatin (CRESTOR) 20 MG tablet TAKE 1 TABLET BY MOUTH EVERY DAY vitamin E 1,000 unit cap Take 1,000 Units by mouth daily. sulfamethoxazole-trimethoprim (BACTRIM DS,SEPTRA DS) 800-160 mg per tablet Take 1 (one) tablet by mouth 2 (two) times a day for 10 days . 20 tablet 0 No current facility-administered medications for this visit. Patient Instructions Try to see your doctor by Friday for re-check. If you develop fever/chills, flu-like symptoms, you should get checked at the ER. Take Tylenol and or Motrin as needed. Stay hydrated. If symptoms worsen, you may return here if needed. Cellulitis: Care Instructions Your Care Instructions Cellulitis is a skin infection caused by bacteria, most often strep or staph. It often occurs after a break in the skin from a scrape, cut, bite, or puncture, or after a rash. Cellulitis may be treated without doing tests to find out what caused it. But your doctor may do tests, if needed, to look for a specific bacteria, like methicillin-resistant Staphylococcus aureus (MRSA). The doctor has checked you carefully, but problems can develop later. If you notice any problems or new symptoms, get medical treatment right away. Follow-up care is a jacobs part of your treatment and safety. Be sure to make and go to all appointments, and call your doctor if you are having problems. It's also a good idea to know your test results and keep a list of the medicines you take. How can you care for yourself at home? Take your antibiotics as directed. Do not stop taking them just because you feel better. You need to take the full course of antibiotics. Prop up the infected area on pillows to reduce pain and swelling. Try to keep the area above the level of your heart as often as you can. If your doctor told you how to care for your wound, follow your doctor's instructions. If you did not get instructions, follow this general advice: ? Wash the wound with clean water 2 times a day. Don't use hydrogen peroxide or alcohol, which can slow healing. ? You may cover the wound with a thin layer of petroleum jelly, such as Vaseline, and a nonstick bandage. ? Apply more petroleum jelly and replace the bandage as needed. Be safe with medicines. Take pain medicines exactly as directed. ? If the doctor gave you a prescription medicine for pain, take it as prescribed. ? If you are not taking a prescription pain medicine, ask your doctor if you can take an dxqe-vic-utxoirz medicine. To prevent cellulitis in the future Try to prevent cuts, scrapes, or other injuries to your skin. Cellulitis most often occurs where there is a break in the skin. If you get a scrape, cut, mild burn, or bite, wash the wound with clean water as soon as you can to help avoid infection. Don't use hydrogen peroxide or alcohol, which can slow healing. If you have swelling in your legs (edema), support stockings and good skin care may help prevent leg sores and cellulitis. Take care of your feet, especially if you have diabetes or other conditions that increase the risk of infection. Wear shoes and socks. Do not go barefoot. If you have athlete's foot or other skin problems on your feet, talk to your doctor about how to treat them. When should you call for help? Call your doctor now or seek immediate medical care if: You have signs that your infection is getting worse, such as: ? Increased pain, swelling, warmth, or redness. ? Red streaks leading from the area. ? Pus draining from the area. ? A fever. You get a rash. Watch closely for changes in your health, and be sure to contact your doctor if: You do not get better as expected. Where can you learn more? Log into your personal health record on [email or web address] and enter X309 in the Education box to learn more about Cellulitis: Care Instructions. Current as of: December 23, 2019 Content Version: 12.8 [employer]. Care instructions adapted under license by your healthcare professional. If you have questions about a medical condition or this instruction, always ask your healthcare professional. [employer] disclaims any warranty or liability for your use of this information. documented in this encounter [facility] 11-27-2020 History of Present illness Narrative [facility] [address] [place] [address] DATE OF VISIT: 11/27/2020 DATE OF : 1950 SS: [id number] PROVIDER: SUBJECTIVE 69 y.o. female to the clinic for complaint of Chief Complaint Patient presents with Animal Bite dog bite left lower leg, happened on Friday 11/24, patient has been cleaning with peroxided and using antibiotic ointment, calvin 12/25/13 HPI: 69-year-old female to the urgent care for concerns over an infection starting the area of a small dog bite on the left anterior lower tibial area. She states she was bringing chicken and noodles over to a neighbor when their small dog bit her on the leg. She has been cleaning it with peroxide, soap and is noted over the past day or so increasing discomfort, puffiness and redness. She had spoke with the bucket pusher of the dog and the bucket pusher states that the patient's rabies immunizations are up-to-date. Patient currently denies any fevers, chills or general sense of illness. She has noticed increasing tenderness to palpation over that area. She has noticed a small amount of drainage from the area which appears to be similar to impetigo, this was noted on the evaluation today. ROS: Constitutional: Denies Fever Respiratory: Denies shortness of breath Musculoskeletal: See HPI above. Neurological: Denies focal neuro symptoms Social History Socioeconomic History Marital status: Single Spouse name: Not on file Number of children: Not on file Years of education: Not on file Highest education level: Not on file Occupational History Not on file Tobacco Use Smoking status: Never Smoker Smokeless tobacco: Never Used Substance and Sexual Activity Alcohol use: Not on file Drug use: Not on file Sexual activity: Not on file Other Topics Concern Not on file Social History Narrative Not on file Social Determinants of Health Financial Resource Strain: Difficulty of Paying Living Expenses: Food Insecurity: Worried About Running Out of Food in the Last Year: Ran Out of Food in the Last Year: Transportation Needs: Lack of Transportation (Medical): Lack of Transportation (Non-Medical): Physical Activity: Days of Exercise per Week: Minutes of Exercise per Session: Stress: Feeling of Stress : Social Connections: Frequency of Communication with Friends and Family: Frequency of Social Gatherings with Friends and Family: Attends [employer] Services: Active Member of Clubs or Organizations: Attends Club or Organization Meetings: Marital Status: History reviewed. No pertinent past medical history. History reviewed. No pertinent family history. Current Outpatient Medications on File Prior to Visit Medication Sig Dispense Refill calcium carbonate-vitamin D2 500 mg(1,250mg) -200 unit tablet Take 1 tablet by mouth 2 (two) times a day. co-enzyme Q-10 30 mg capsule Take 30 mg by mouth 3 (three) times a day. rosuvastatin (CRESTOR) 20 MG tablet TAKE 1 TABLET BY MOUTH EVERY DAY vitamin E 1,000 unit cap Take 1,000 Units by mouth daily. tetanus-diphtheria toxoids (DECAVAC 2-2) injection Sign this order in conjunction with the immunization order to satisfy [place] Board of Pharmacy Positive ID requirements for immunization orders . 1 mL 0 No current facility-administered medications on file prior to visit. Allergies Allergen Reactions Penicillins EXAM: BP 134/83 (BP Location: Left arm, Patient Position: Sitting, BP Cuff Size: Adult) Pulse 82 Temp 97.5 F (36.4 C) (Temporal) Resp 16 Ht 5' 5 Wt 104.3 kg (230 lb) SpO2 93% BMI 38.27 kg/m Primary Assessment: Airway patent. Respirations unlabored, Normal respiratory effort Constitutional: Vital signs reviewed. Well appearing. No distress Psychiatric: Mental status appropriate. Normal affect Skin: Warm and dry. Thorax/ Respiratory: Respiratory effort non-labored. Musculoskeletal: Examination of the left lower leg at approximately two thirds distal point there is an area of redness and a small skin tear with surrounding erythema. There is a honey crusted type material which is draining from the area. This appears to be dry at the time of today's arrival. Approximately 4 cm inferior of that skin tear appears to be an open laceration which is now healing by second intention. There is no drainage or bleeding noted from that site. Very mild scattered erythema is located around this area for a total of about 15 cm tall by 4 cm wide. No obvious signs of cellulitis are noted. She has noted increased tenderness. There is tenderness to palpation over the area of the skin type tear. No purulent drainage is noted nor is there any foul odor noted over the area. Patient states an allergy to penicillin and when questioned she states many years ago she was taking penicillin for dental infection and developed several small sores in her mouth. She denies any anaphylactoid or anaphylactic reactions. Denies any trouble breathing or any generalized rashes or hives. We have discussed the #1 recommended treatment for infection related to a dog bite would be Augmentin. She has decided she will try that and if she develops any abnormal symptoms she will stop the same. Neurologic: Alert and Oriented PROCEDURE Procedures RESULTS No results found for this or any previous visit (from the past 168 hour(s)). Diagnosis: The encounter diagnosis was Dog bite of left lower leg with infection, initial encounter. Plan: 1. Dog bite of left lower leg with infection, initial encounter Wound Aerobic Culture No follow-ups on file. [facility] COVID-19 Mask Status: Does the patient have classic COVID-19 symptoms? No, the patient does not have COVID-19 symptoms and the patient WAS wearing a mask during the visit ORDERS PLACED THIS VISIT Orders Placed This Encounter Procedures Wound Aerobic Culture Td vaccine greater than or equal to 7yo preservative free IM MEDICATION LIST AT END OF VISIT Current Outpatient Medications Medication Sig Dispense Refill calcium carbonate-vitamin D2 500 mg(1,250mg) -200 unit tablet Take 1 tablet by mouth 2 (two) times a day. co-enzyme Q-10 30 mg capsule Take 30 mg by mouth 3 (three) times a day. rosuvastatin (CRESTOR) 20 MG tablet TAKE 1 TABLET BY MOUTH EVERY DAY vitamin E 1,000 unit cap Take 1,000 Units by mouth daily. amoxicillin-clavulanate (Augmentin) 875-125 mg per tablet Take 1 (one) tablet by mouth 2 (two) times a day for 7 days . 14 tablet 0 tetanus-diphtheria toxoids (DECAVAC 2-2) injection Sign this order in conjunction with the immunization order to satisfy [place] Board of Pharmacy Positive ID requirements for immunization orders . 1 mL 0 No current facility-administered medications for this visit. -Her penicillin allergy related to several small sores in her mouth while taking penicillin for dental infection. She is decided she will try the Augmentin twice daily. If she develops any abnormal symptoms she will stop the same and contact her primary care provider or call back here. -It is at least 7 years since her last diphtheria tetanus we decided based on the wound we will update her today. -Prescription for Augmentin 875 1 tablet twice daily for 7 days. -To the emergency department if her symptoms worsen. -Primary care provider if not significantly improved in 3 to 4 days Jay Styles 11/27/2020 documented in this encounter [facility] 11-27-2020 Instructions Jay Styles PA-C - 11/27/2020 12:38 PM EDT Images from the original note were not included. Infections from dog bites are fairly rare though it appears that your wound may have an early infection starting. You had noted a previous reaction to penicillin in the past which caused small sores in your mouth. The #1 recommended medicine for this type of bite would be Augmentin which includes amoxicillin which is similar to penicillin. Based on our conversation we will attempt the medication to see how you do with the same. If you develop any rashes or abnormal symptoms, you may stop the medication and contact us so we can change the antibiotic. We have taken a swab of the small amount of drainage coming from the wound. We will send this for evaluation. If we need to make a change in medications we will contact you by telephone. When completed with the animal bite form it is likely that you will receive a visit from a hot dog vendor or stunner animal. We have updated your tetanus/diphtheria today. Follow-up with your primary care provider in 3 to 4 days after starting the antibiotic to make sure that the area is healing properly. Go to the emergency department if the area appears to be worsening while on the oral antibiotic. Animal Bites: Care Instructions Your Care Instructions After an animal bite, the biggest concern is infection. The chance of infection depends on the type of animal that bit you, where on your body you were bitten, and your general health. Many animal bites are not closed with stitches, because this can increase the chance of infection. Your bite may take as little as 7 days or as long as several months to heal, depending on how bad it is. Taking good care of your wound at home will help it heal and reduce your chance of infection. The doctor has checked you carefully, but problems can develop later. If you notice any problems or new symptoms, get medical treatment right away. Follow-up care is a jacobs part of your treatment and safety. Be sure to make and go to all appointments, and call your doctor if you are having problems. It's also a good idea to know your test results and keep a list of the medicines you take. How can you care for yourself at home? If your doctor told you how to care for your wound, follow your doctor's instructions. If you did not get instructions, follow this general advice: ? After 24 to 48 hours, gently wash the wound with clean water 2 times a day. Do not scrub or soak the wound. Don't use hydrogen peroxide or alcohol, which can slow healing. ? You may cover the wound with a thin layer of petroleum jelly, such as Vaseline, and a nonstick bandage. ? Apply more petroleum jelly and replace the bandage as needed. After you shower, gently dry the wound with a clean towel. If your doctor has closed the wound, cover the bandage with a plastic bag before you take a shower. A small amount of skin redness and swelling around the wound edges and the stitches or nuvia is normal. Your wound may itch or feel irritated. Do not scratch or rub the wound. Ask your doctor if you can take an cuqa-tui-aobioab pain medicine, such as acetaminophen (Tylenol), ibuprofen (Advil, Motrin), or naproxen (Aleve). Read and follow all instructions on the label. Do not take two or more pain medicines at the same time unless the doctor told you to. Many pain medicines have acetaminophen, which is Tylenol. Too much acetaminophen (Tylenol) can be harmful. If your bite puts you at risk for rabies, you will get a series of shots over the next few weeks to prevent rabies. Your doctor will tell you when to get the shots. It is very important that you get the full cycle of shots. Follow your doctor's instructions exactly. You may need a tetanus shot if you have not received one in the last 5 years. If your doctor prescribed antibiotics, take them as directed. Do not stop taking them just because you feel better. You need to take the full course of antibiotics. When should you call for help? Call your doctor now or seek immediate medical care if: The skin near the bite turns cold or pale or it changes color. You lose feeling in the area near the bite, or it feels numb or tingly. You have trouble moving a limb near the bite. You have symptoms of infection, such as: ? Increased pain, swelling, warmth, or redness near the wound. ? Red streaks leading from the wound. ? Pus draining from the wound. ? A fever. Blood soaks through the bandage. Oozing small amounts of blood is normal. Your pain is getting worse. Watch closely for changes in your health, and be sure to contact your doctor if you are not getting better as expected. Where can you learn more? Log into your personal health record on [email or web address] and enter I604 in the Education box to learn more about Animal Bites: Care Instructions. Current as of: August 18, 2019 Content Version: 12.8 [employer]. Care instructions adapted under license by your healthcare professional. If you have questions about a medical condition or this instruction, always ask your healthcare professional. [employer] disclaims any warranty or liability for your use of this information. documented in this encounter [facility] Diagnosis Cellulitis of left lower extremity- Primary documented in this encounter [facility] note* Diagnosis Poison umm dermatitis- Primary [facility] Diagnosis Sinus congestion- Primary Other diseases of nasal cavity and sinuses Respiratory infection Other diseases of respiratory system, not elsewhere classified [facility]* Diagnosis Rib pain on right side Chest pain, unspecified Mid back pain Backache, unspecified [facility]* Diagnosis Poison umm- Primary Contact dermatitis and other eczema due to plants (except food) [facility]* Diagnosis Trigger point with back pain- Primary Backache, unspecified Benign hypertension Essential hypertension, benign Borderline diabetes Other abnormal glucose Hypercholesteremia Pure hypercholesterolemia [facility]* Diagnosis Atypical nevus of right upper arm- Primary [facility]* Diagnosis Atypical nevus of right upper arm [facility] Diagnosis Benign neoplasm of skin, unspecified location- Primary documented in this encounter [facility]* Diagnosis Contact dermatitis, unspecified contact dermatitis type, unspecified trigger- Primary [facility]* Diagnosis Benign hypertension- Primary Essential hypertension, benign Actinic keratosis [facility]* Diagnosis Viral URI- Primary Acute upper respiratory infections of unspecified site [facility] Diagnosis Viral upper respiratory illness- Primary Acute upper respiratory infections of unspecified site [facility] Diagnosis Benign hypertension- Primary Essential hypertension, benign Dysplastic nevus of upper extremity, right Borderline diabetes Other abnormal glucose Hypercholesteremia Pure hypercholesterolemia [facility] Diagnosis Encounter for screening mammogram for breast cancer [facility] Diagnosis Benign hypertension- Primary Essential hypertension, benign Iron deficiency anemia, unspecified iron deficiency anemia type Hypercholesteremia Pure hypercholesterolemia Other specified abnormal findings of blood chemistry [facility] Diagnosis Contact dermatitis due to plants, except food, unspecified contact dermatitis type- Primary documented in this encounter [facility] note* Diagnosis Dysuria- Primary Borderline diabetes Other abnormal glucose Vaginal irritation Unspecified noninflammatory disorder of vagina Benign hypertension Essential hypertension, benign Sinus congestion Other diseases of nasal cavity and sinuses [facility] Diagnosis Allergic dermatitis- Primary Contact dermatitis and other eczema, due to unspecified cause Allergic contact dermatitis due to plants, except food Contact dermatitis and other eczema due to plants (except food) [facility] Auth/Cert Specialty Diagnoses / Procedures Referred By Anita funk Referred To Contact Diagnoses 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 [D22.61] Procedures SD EXC SKIN BENIG 2.1-3CM TRUNK,ARM,LEG EXCISION LESION SKIN EXTREMITY Catherine Vaca MD [address] [place] [id number] Referral ID Status Reason Start Date Expiration Date Visits Re quested Visits Authorized [id number] 12/19/2021 1 1 [facility] Summary Purpose Family History No Family History Records FoundNo Family History Records FoundNo Family History Records FoundNo Family History Records Found Advance Directives No Advanced Directives Records FoundDocuments on File Type Date Recorded Patient Department [employer] Expl anation Advance Directives and Living Will Reason for Referral Specialty Diagnoses / Procedures Referred By Anita funk Referred To Contact Mammography Diagnoses Encounter for screening mammogram for breast cancer Procedures MAMMO SCREENING WITH DARRIUS BILATERAL Elizabet Duke MD [address] [place] [address] [facility] [address] [place] [address] Referral ID Status Reason Start Date Expiration Date Visits Re quested Visits Authorized [id number] Closed 07/18/2022 08/12/2023 1 1 Additional Source Comments INFORMATION SOURCE (unrecogn ized section and content) DATE CREATED AUTHOR AUTHOR'S ORGANIZ ATION 12/20/2022 [facility] DATE CREATED AUTHOR AUTHOR'S ORGANIZ ATION 02/05/2023 [facility] DATE CREATED AUTHOR AUTHOR'S ORGANIZ ATION 03/28/2023 [facility] Reason for Visit (unrecogniz ed section and content) Reason Comments Erythema Lt lower leg redness , pain, and warm to the touch that is getting worse. Pt finished prescribed antibiotics last Friday. Reason Comments Rash rash x 5 days Reason Comments Cough 2 weeks. Productive cough, runny nose, headache. OTC meds haven't helped. Reason Comments Poison Umm/Poison [place]/Poison [place] Expos ure Reason Comments Follow-up 6 month Back Pain Upper back between s houlder blades off and on for several months. Reason Comments New Patient Sera is here today for a lesion on her outer, upper arm. She states it appeared about 3-4 weeks ago and has changed in color. She denies any pain. Reason Comments Post Op Visit Excision lesion to r ight upper arm on 12/21/21. Bandage intact. She denies any pain. Reason Comments Poison Umm Was weeding flower b ed x3 days ago now with rash on hands chest and chin Reason Comments Hypertension 6 month , check wher e skin lesion was removed from Rt. Arm Wants area on nose checked. Reason Comments Cough Productive Cough, ch est congestion, wheezing,scratchy throat, sneezing, started Friday-neg covid on Fri Reason Comments Cough Cough and cold sx fo r couple days , had negative covid test on fri and yesterday, went to urgent care yesterday and the only thing they did was give me a pill for my cough which did nothing Reason Comments Hypertension Follow-up 3 month Specialty Diagnoses / Procedures Referred By Anita funk Referred To Contact Mammography Diagnoses Encounter for screening mammogram for breast cancer Procedures MAMMO SCREENING WITH DARRIUS BILATERAL Elizabet Duke MD [address] [place] [facility] [place] [address] [facility] [address] [place] [address] Referral ID Status Reason Start Date Expiration Date Visits Re quested Visits Authorized [id number] Closed 07/18/2022 08/12/2023 1 1 Reason Comments Other 2 month follow up Reason Comments Poison Umm X 2 weeks has had 2 spots - one on each cheek at jaw line-- now rash has started spreading - waist line and afraid may have it in RT eye Reason Comments Skin Problem Red circular area on right upper arm for 2 weeks. Care Teams (unrecognized sec tion and content) [employer] Recycling Technician Relationship Specialty Start Date End Date Elizabet Duke MD PCP - General Family Medicine 11/14/16 [employer] Recycling Technician Relationship Specialty Start Date End Date Elizabet Duke MD PCP - General Family Medicine 11/14/16 [employer] Recycling Technician Relationship Specialty Start Date End Date Elizabet Duke MD PCP - General Family Medicine 11/14/16 [employer] Recycling Technician Relationship Specialty Start Date End Date Elizabet Duke MD PCP - General Family Medicine 11/14/16 [employer] Recycling Technician Relationship Specialty Start Date End Date Elizabet Duke MD PCP - General Family Medicine 11/14/16 [employer] Recycling Technician Relationship Specialty Start Date End Date Elizabet Duke MD PCP - General Family Medicine 11/14/16 [employer] Recycling Technician Relationship Specialty Start Date End Date Elizabet Duke MD [address] [place] [facility] [place] [address] PCP - General Family Medicine 10/18/15 [employer] Management Recycling Technician Relationship Specialty Start Date End Date Elizabet Duke MD PCP - General Family Medicine 11/14/16 [employer] Management Recycling Technician Relationship Specialty Start Date End Date Elizabet Duke MD PCP - General Family Medicine 11/14/16 [employer] Management Recycling Technician Relationship Specialty Start Date End Date Elizabet Duke MD PCP - General Family Medicine 11/14/16 [employer] Management Recycling Technician Relationship Specialty Start Date End Date Elizabet Duke MD PCP - General Family Medicine 11/14/16 [employer] Recycling Technician Relationship Specialty Start Date End Date Elizabet Duke MD [address] [place] [id number] PCP - General Family Medicine 10/18/15 [employer] Management Recycling Technician Relationship Specialty Start Date End Date Elizabet Duke MD PCP - General Family Medicine 11/14/16 Waste Management Recycling Technician Relationship Specialty Start Date End Date Elizabet Duke MD PCP - General Family Medicine 11/14/16 PRN Active and Recently Administ ered Medications (unrecognized section and content) FOR RECORDS PERTAINING TO PATIENTS WHO ARE OR HAVE BEEN ENROLLED IN A CHEMICAL DEPENDENCY/SUBSTANCEABUSE PROGRAM, SOME INFORMATION MAY BE OMITTED. This clinical summary was aggregated from multiple sources. Caution should be exercised in using it in the provision of clinical care. This summary normalizes information from multiple sources, and as a consequence, information in this document may materially change the coding, format and clinical context of patient data. In addition, data may be omitted in some cases. CLINICAL DECISIONS SHOULD BE BASED ON THE PRIMARY CLINICAL RECORDS. [employer]. provides no warranty or guarantee of the accuracy or completeness of information in this document.
[2023-04-25 09:10] VITALS: BP 137/72; PULSE 82; RESP 16; TEMP 36.2; O2SAT 96; BMI 37.0
--- NOTE | 2023-04-25 10:28 | PCM.HP.BLA ---
History and Physical Date of Admission: 04/25/23 Interim Note: The patient is examined and there are no changes to the previous exam. She presents for exicision of a previously biopsied lesion of her right arm. Previous path had demonstrated a ifcgngoz-du-xapn. Assessment & Plan Assessment/Plan (1) Neoplasm of uncertain behavior of skin: PLAN: Plan For excision lesion right upper arm in the vicinity of a previous zndzggvo-he-xovq.
--- NOTE | 2023-04-25 10:40 | LES_PTH ---
PATHOLOGY RESULTS PATIENT: CHRISTIAN ESTES [place] [facility] [id number] AGE/SX: 72/F ROOM: RE04/25/[address]: Dr. Catherine Vaca MD : 1950 BED: DIS: 04/25/2023 SPEC #: [id number] RECD: 04/25/23 13:46 STATUS: JAZLYN KANE #: [id number] KIMMIE: 04/25/23 10:[address]: Catherine Vaca DEPT: SURGICAL PATHOLOGY RECD BY: Lata Beverly ENTERED: 04/28/23 08:34 SP TYPE: Lesion Tissues: Skin of arm Procedures: Surgery Specimen Level IV HEADER OPERATION: Excision, lesion right arm (2 cm) PRE-OP DIAGNOSIS: Neoplasm of lesion right upper arm TISSUE SUBMITTED: Neoplasm of uncertain behavior right elbow area MICROSCOPIC DIAGNOSIS Lesion right arm, excision: Negative for residual melanocytic lesion. Dermal fibrosis, consistent with scar. See comment. MIAN: 04/29/2023 COMMENT Immunohistochemistry ([id number]) supports the above diagnosis. Correlation with clinical findings and appropriate follow up are necessary. MICROSCOPIC DESCRIPTION Slides are reviewed. GROSS DESCRIPTION Received in fixative is one container labeled with the patient's name and designated neoplasm right elbow area. The specimen consists of a fiore-white skin ellipse measuring 1.5 x 1.0 x 0.3 cm. The specimen is inked, serially sectioned and totally submitted in one cassette. /MIAN:nikita 04/28/23 TC:5 CPT: 95137
[2023-04-25 11:03] VITALS: BP 132/80; BP 142/88; O2SAT 100; O2SAT 98; O2SAT 99
[2023-04-25] MEDS: Lidocaine 1% /Epi 1:100 9 ML, Sodium Bicarbonate 1 MEQ OPERA.SITE (11:15)
--- NOTE | 2023-04-25 11:31 | DCINST_ITS ---
Discharge Instructions Dressing / Incision Additional Dressing/Incision Instructions:: May shower over the dressing--but do not scrub. If the dressing comes off or is removed d/t irritation, may shower over the site and replace a bandaid daily. Follow Up Care Please Follow Up With: Catherine Vaca MD When: as scheduled. Test Results: Test results from this visit will be discussed in further detail at your follow- up appointment, if applicable. Discharge Plan Admission Attending Provider: Catherine Vaca Primary Care Provider: JESSICA COHEN Discharge Orders/Prescriptions Prescriptions: New cephalexin 500 mg capsule 500 mg PO BID 5 Days Qty: 10 0RF No Action furosemide [Lasix] 20 mg tablet 20 mg PO DAILY rosuvastatin 20 mg tablet 20 mg PO DAILY potassium chloride 10 mEq tablet extended release 10 meq PO DAILY Patient Comments: TAKE 1 TABLET BY MOUTH EVERY DAY losartan 25 mg tablet 25 mg PO DAILY Patient Comments: TAKE 1 TABLET BY MOUTH EVERY DAY hydrochlorothiazide 12.5 mg tablet 12.5 mg PO DAILY lutein 40 mg capsule 40 mg PO DAILY Rx Instructions: administer with meals coenzyme Q10 [CoQ-10] 100 mg capsule 200 mg PO DAILY cholecalciferol (vitamin D3) [Vitamin D3] 125 mcg (5,000 unit) tablet 250 mcg PO DAILY Referrals / Follow Up: JESSICA COHEN [Other] Disposition Disposition (needs filled in before D/C Order can be placed): Home, Self Care
--- NOTE | 2023-04-25 11:35 | PCM.OPRPT ---
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 She has noticed a change in color at the distal end of the previous excision and therefore presents for reexcision of the site with submission for pathologic evaluation. She is marked in the preop holding area prior to surgery. The patient was brought to the operating room and placed on the operating room table in the supine position. The right arm is prepped and draped in the usual sterile fashion. 1% Xylocaine with epinephrine buffered with sodium bicarb is injected in the periphery of the area. An elliptical excision extending the previous scar over the area in question is made. This is carried down through the subcutaneous tissue in a full-thickness of skin is removed. Hemostasis is controlled with cautery. The incisions then closed in layers using a umumio-ln-yocpu Monocryl suture in the subcutaneous tissue and dermis. Skin edges were approximated with a running subcuticular Monocryl suture. Further reinforcement the closure is performed with 2 interrupted simple Prolene sutures. Dermabond and Steri-Strips along with a Tegaderm is placed as a dressing. She tolerated the procedure well was taken to the recovery area in an awake and stable condition. Needle and sponge counts are correct. Complications None Admit VTE Documentation VTE Mechan Device Prophylaxis: None Reason prophylaxis not ordered:: Treatment Not Indicated
[2023-04-25 11:53] VITALS: BP 135/78; PULSE 86; RESP 16; TEMP 36.8; O2SAT 100
== END 2023-04-25 11:54 | disposition home or self-care (01) ==
LOC: SDC 08:23 → AC 08:24
PROVIDERS: Referring Provider Plastic Surgery; Visit Provider Plastic Surgery
PROC: (CPT 11402; principal; 2023-04-25 10:30)
DX: L90.5 Scar conditions and fibrosis of skin (principal); Z86.006 Personal history of melanoma in-situ
CPT/HCPCS: 11402; 12031; 88305; 88341; 88342